=== PATIENT | male | born 1955 | race Caucasian/White ===

== ENCOUNTER → 2018-08-07 | Outpatient (CLI) | payer OTHER ==
[~2018-08-07] MED LIST: ASPIR 8181 MG PO; ATORVASTATIN CA40 MG PO; DICYCLOMINE HCL20 MG PO; EFFIENT10 MG PO; METOPROLOL TART25 MG PO; PROMETHAZINE HC25 M1 PO; SUCRALFATE1 GM PO; TRIAZOLAM0.25 MG PO; VSL#3 CAPSULE1 EACH PO; Z.0.CRESTOR40 MG PO; Z.0.ECOTRIN325 MG PO; Z.0.LOTREL 5-20 MG1 PO; Z.0.OMEPRAZOLE40 MG PO
--- NOTE | 2018-08-10 11:52 | Diagnostic Imaging Report ---
TECHNIQUE: Magnetic resonance imaging of the LEFT KNEE was performed WITHOUT injected contrast. HISTORY: Left knee pain COMPARISON: None available. FINDINGS: LIGAMENTS AND TENDONS: ACL: Intact PCL: Intact Collateral ligaments: Intact Iliotibial band: Unremarkable Popliteal tendon: Intact Extensor mechanism: Intact JOINT: Menisci: Medial: Probable prior partial meniscectomy Lateral: Intact Articular Cartilage: Medial Compartment: Focal full-thickness cartilage loss involving the weightbearing femoral condyle measuring approximately 5 by 1 cm with subchondral edema Lateral Compartment: No focal defect. Patellofemoral Compartment: No focal defect. Joint Fluid: Trace joint effusion. BONE: No focal or infiltrative bone marrow replacing abnormality. No acute fracture. SOFT TISSUES: Otherwise, unremarkable. IMPRESSION: Medial meniscus probable partial meniscectomy (rather than horizontal tear) to the body and posterior horn. Medial femoral condyle full-thickness cartilage defect with subchondral edema. Signed by: Dr. Miki Corley M.D. on 08/10/2018 11:48 AM
== END ==
LOC: MRI 08:10
PROVIDERS: ATTEND Specialist
DX: M23.92 Unspecified internal derangement of left knee (principal)

== ENCOUNTER 2018-10-23 14:00 | Outpatient (RCR) | payer OTHER ==
[2018-10-25] MEDS ORDERED: CLOPIDOGREL75 MG PO (15:27)
[2018-10-25] MEDS ORDERED: GABAPENTIN300 MG PO (15:27)
== END 2018-11-05 ==
LOC: PT 14:00
PROVIDERS: ATTEND Specialist
DX: S93.432D Sprain of tibiofibular ligament of left ankle, subsequent encounter (principal); M23.322 Other meniscus derangements, posterior horn of medial meniscus, left knee; M23.92 Unspecified internal derangement of left knee; M25.562 Pain in left knee; M25.572 Pain in left ankle and joints of left foot; M62.81 Muscle weakness (generalized)
CPT/HCPCS: 97139

== ENCOUNTER → 2018-10-26 | Day surgery (SDC) | payer OTHER ==
[~2018-10-26] MED LIST changes: +CLOPIDOGREL75 MG PO; +FENTANYL CITRATE/PF 100MCG/2 ML INJ ONE; +GABAPENTIN300 MG PO; +MIDAZOLAM HCL 2 MG/2 ML VIAL ONE; +PROPOFOL IV EMULSION 10 MG/ML 50 ML VIAL ONE
--- OUTSIDE RECORDS SUMMARY | 2018-10-26 10:57 | XMS REPORT | Summary of Care ---
Author Author [facility] Outpatient Imaging [facility] Outpatient Imaging [facility] Address Unknown Phone Unavailable Encounter HQ Terrance_steve(FIN) [id number] Date(s): 03/08/18 - 03/08/18 [facility] Outpatient Imaging [facility] [address] [facility], [address] [place] [address] [phone] Encounter Diagnosis Other forms of stomatitis (Final) - 03/14/18 Discharge Disposition: Home or Self Care Attending Physician: Sergo Harrison MD Referring Physician: Sergo Harrison MD Vital Signs No data available for this section Problem List Condition Effective Dates Status Health Status Informant Coronary artery Resolved disease(Confirmed) GERD Resolved (gastroesophageal reflux disease)(Confirmed) Heart Resolved attack(Confirmed) HTN Resolved (hypertension)(Confi rmed) Hyperlipidemia(Confi Resolved rmed) Allergies, Adverse Reactions, Alerts Substance Reaction Severity Status NKDA Active Medications No data available for this section Results No data available for this section Immunizations No data available for this section Procedures Procedure Date Related Diagnosis Body Site Status Stent placement1 Completed 1RCA x 2 Social History Social History Type Response Substance Abuse Use: None. Alcohol Never Smoking Status Never smoker; Exposure to Tobacco Smoke None; Cigarette Smoking Last 365 Days No; Reg Smoking Cessation Counseling No entered on: 01/29/16 Assessment and Plan No data available for this section
--- OUTSIDE RECORDS SUMMARY | 2018-10-26 10:57 | XMS REPORT | Summary of Care ---
Author Author [facility] Organization [facility] Address Unknown Phone Unavailable Encounter LUCA Longoria(KASH) [id number] Date(s): 04/30/15 - 05/01/15 [facility] [address] [place] [address]- Discharge Disposition: Home Attending Physician: Henrry Gutierrez MD Admitting Physician: Henrry Gutierrez MD Referring Physician: Henrry Gutierrez MD Vital Signs 1 2 3 Most recent to oldest [Reference Range]: 165.1 cm (04/30/15 10:31 AM) Height 1 2 3 Most recent to oldest [Reference Range]: 98.0 DegF (05/01/15 12:00 PM) 98 DegF (05/01/15 12:00 AM) 97.9 DegF (04/30/15 8:00 PM) Temperature Oral [96.4-99.1 DegF] 1 2 3 Most recent to oldest [Reference Range]: 138/70 mmHg (05/01/15 1:00 PM) 141/69 mmHg *HI* (05/01/15 12:00 PM) 148/70 mmHg *HI* (05/01/15 11:00 AM) Blood Pressure [90-140/60-90 mmHg] 1 2 3 Most recent to oldest [Reference Range]: 18 BRMIN (05/01/15 1:00 PM) 18 BRMIN (05/01/15 12:00 PM) 18 BRMIN (05/01/15 11:00 AM) Respiratory Rate [14-20 BRMIN] 1 2 3 Most recent to oldest [Reference Range]: 67.273 kg (04/30/15 10:31 AM) Weight 1 2 3 Most recent to oldest [Reference Range]: 24.68 m2 (04/30/15 10:31 AM) Body Mass Index Problem List Condition Effective Dates Status Health Status Informant Heart Resolved attack(Confirmed) HTN Resolved (hypertension)(Confi rmed) Allergies, Adverse Reactions, Alerts Substance Reaction Severity Status NKDA Active Medications acetaminophen-hydrocodone 325 mg-5 mg oral tablet 1 tab, Route: PO, Drug Form: TAB, Dosing Weight 67.273, kg, Q4H, PRN Pain Score 1-5, Start date: 04/30/15 13:11:00, Duration: 30 day, Stop date: 05/30/15 13:10: 00 Notes: (Same as: [place] 325/5) Do not exceed 4gm/day of acetaminophen. Start Date: 04/30/15 Stop Date: 05/01/15 Status: Discontinued acetaminophen-hydrocodone 325 mg-5 mg oral tablet 1 tab, Route: PO, Drug Form: TAB, Dosing Weight 67.273, kg, Q4H, PRN Pain Score 1-5, Start date: 04/30/15 16:12:00, Duration: 30 day, Stop date: 05/30/15 16:11: 00 Notes: (Same as: [place] 325/5) Do not exceed 4gm/day of acetaminophen. Start Date: 04/30/15 Stop Date: 05/01/15 Status: Discontinued aspirin 81 mg tablet, enteric coated 81 mg, 1 tab, Route: PO, Drug form: ECTAB, Daily, Dosing Weight 67.273, kg, Star t date: 04/30/15 17:01:00, Duration: 30 day, Stop date: 05/30/15 9:00:00 Notes: Do not crush or chew.(Same As: Ecotrin) Start Date: 04/30/15 Stop Date: 05/01/15 Status: Discontinued Aspirin Low Dose 81 mg oral tablet =1 tab, PO, Daily, # 100 tab, 3 Refill(s) Start Date: 04/30/15 Stop Date: 05/01/15 Status: Discontinued Aspirin Low Dose 81 mg oral tablet =1 tab, PO, Daily, # 30 tab, 5 Refill(s) Start Date: 05/01/15 Status: Ordered atorvastatin 20 mg, 2 tab, Route: PO, Drug form: TAB, Bedtime, Dosing Weight 67.273, kg, Star t date: 04/30/15 21:00:00, Duration: 30 day, Stop date: 05/29/15 21:00:00 Notes: (Same As: Lipitor) Start Date: 04/30/15 Stop Date: 05/01/15 Status: Discontinued atorvastatin 20 mg oral tablet 20 mg=1 tab, PO, QPM, # 30 tab, 5 Refill(s) Start Date: 05/01/15 Status: Ordered cloNIDine 0.1 mg oral tablet 0.1 mg, 1 tab, Route: PO, Drug form: TAB, Q6H, Dosing Weight 67.273, kg, PRN Josselin vated BP, Start date: 04/30/15 18:20:00, Duration: 30 day, Stop date: 05/30/15 1 8:19:00, SBP > 165 Notes: (Same As: Catapres) Start Date: 04/30/15 Stop Date: 05/01/15 Status: Discontinued dicyclomine 20 mg oral tablet 20 mg=1 tab, PO, TID, 0 Refill(s) Start Date: 04/30/15 Status: Ordered diphenhydrAMINE 25 mg, 1 tab, Route: PO, Drug form: TAB, Bedtime, Dosing Weight 67.273, kg, PRN Insomnia, Start date: 04/30/15 13:11:00, Duration: 30 day, Stop date: 05/30/15 1 3:10:00 Start Date: 04/30/15 Stop Date: 05/01/15 Status: Discontinued diphenhydrAMINE 25 mg, 1 tab, Route: PO, Drug form: TAB, Bedtime, Dosing Weight 67.273, kg, PRN Insomnia, Start date: 04/30/15 16:12:00, Duration: 30 day, Stop date: 05/30/15 1 6:11:00 Start Date: 04/30/15 Stop Date: 05/01/15 Status: Discontinued famotidine 20 mg, 1 tab, Route: PO, Drug form: TAB, Q12H, Dosing Weight 67.273, kg, Start d ate: 04/30/15 21:00:00, Duration: 30 day, Stop date: 05/30/15 9:00:00 Notes: (Same as: Pepcid) Start Date: 04/30/15 Stop Date: 05/01/15 Status: Discontinued metoprolol tartrate 25 mg, 1 tab, Route: PO, Drug form: TAB, Q12H, Dosing Weight 67.273, kg, Start d ate: 05/01/15 21:00:00, Duration: 30 day, Stop date: 05/31/15 9:00:00 Notes: (Same as: Lopressor) Start Date: 05/01/15 Stop Date: 05/01/15 Status: Canceled metoprolol tartrate 25 mg oral tablet 25 mg, PO, Q12H, # 60 tab, 5 Refill(s) Start Date: 05/01/15 Status: Ordered MiraLax 17 gm, 1 pkt, Route: PO, Drug form: PWDR, Daily, Dosing Weight 67.273, kg, PRN C onstipation, Start date: 04/30/15 18:20:00, Duration: 30 day, Stop date: 5 18:19:00 Notes: Dissolve in 8 oz of water or juice.(Same as: Miralax) Start Date: 04/30/15 Stop Date: 05/01/15 Status: Discontinued nitroglycerin SL Tab 0.4 mg, 1 tab, Route: SL, Drug form: TAB, Q5Min, Dosing Weight 67.273, kg, PRN C hest Pain, Start date: 04/30/15 13:11:00, Duration: 3 doses or times, Stop date: Limited # of times Notes: (Same as:Nitroquick, Nitrostat)"Do Not Crush" Sublingual tablet Start Date: 04/30/15 Stop Date: 04/30/15 Status: Discontinued nitroglycerin SL Tab 0.4 mg, 1 tab, Route: SL, Drug form: TAB, Q5Min, Dosing Weight 67.273, kg, PRN C hest Pain, Start date: 04/30/15 16:12:00, Duration: 3 doses or times, Stop date: Limited # of times Notes: (Same as:Nitroquick, Nitrostat)"Do Not Crush" Sublingual tablet Start Date: 04/30/15 Stop Date: 05/01/15 Status: Discontinued normal saline 0.9% IV 1,000 mL 1,000 mL, Rate: 100 ml/hr, Infuse over: 10 hr, Route: IV, Dosing Weight 67.273 k g, Total Volume: 1,000, Start date: 04/30/15 11:08:00, Duration: 30 day, Stop da te: 05/30/15 11:07:00 Start Date: 04/30/15 Stop Date: 05/01/15 Status: Discontinued omeprazole 40 mg oral delayed release capsule 40 mg=1 cap, PO, BID, 0 Refill(s) Start Date: 04/30/15 Stop Date: 05/01/15 Status: Discontinued ondansetron 4 mg, 1 tab, Route: PO, Drug form: TAB, Q8H, Dosing Weight 67.273, kg, PRN Nause a & Vomiting, Start date: 04/30/15 13:11:00, Duration: 30 day, Stop date: 05/30/15 13:10:00 Notes: (Same as: Zofran) Start Date: 04/30/15 Stop Date: 04/30/15 Status: Discontinued ondansetron 4 mg, 1 tab, Route: PO, Drug form: TAB, Q8H, Dosing Weight 67.273, kg, PRN Nause a & Vomiting, Start date: 04/30/15 16:12:00, Duration: 30 day, Stop date: 05/30/15 16:11:00 Notes: (Same as: Zofran) Start Date: 04/30/15 Stop Date: 04/30/15 Status: Discontinued Restoril 15 mg, 1 cap, Route: PO, Drug form: CAP, Bedtime, Dosing Weight 67.273, kg, PRN Sleep, Start date: 04/30/15 18:20:00, Duration: 30 day, Stop date: 05/30/15 18:1 9:00 Notes: (Same As: Restoril) Start Date: 04/30/15 Stop Date: 05/01/15 Status: Discontinued Sodium Chloride 0.9% IV 1,200 mL 1,200 mL, Rate: 100 ml/hr, Infuse over: 12 hr, Route: IV, Dosing Weight 67.273 k g, Total Volume: 1,200, Start date: 04/30/15 16:12:00, Duration: 12 hr, Stop tess e: 05/01/15 4:11:00 Start Date: 04/30/15 Stop Date: 05/01/15 Status: Completed ticagrelor 90 mg, 1 tab, Route: PO, Drug form: TAB, Q12H, Dosing Weight 67.273, kg, Start d ate: 04/30/15 21:00:00, Duration: 30 day, Stop date: 05/30/15 9:00:00 Notes: (Same as: Brilinta) Start Date: 04/30/15 Stop Date: 05/01/15 Status: Discontinued ticagrelor 90 mg oral tablet 90 mg=1 tab, PO, Q12H, # 60 tab, 5 Refill(s) Start Date: 05/01/15 Status: Ordered Tylenol 650 mg, 20.3 mL, Route: PO, Drug form: LIQ, Q6H, Dosing Weight 67.273, kg, PRN O ther -See Comment, Start date: 04/30/15 18:20:00, Duration: 30 day, Stop date: 1 18:19:00, fever, pain, headache Notes: Max jcpujaimoojor=2107be/day (4 gm/day). (Same as: Tylenol) Start Date: 04/30/15 Stop Date: 05/01/15 Status: Discontinued Zofran 4 mg, 2 mL, Route: IVP, Drug form: INJ, Q4H, Dosing Weight 67.273, kg, PRN Nause a, Start date: 04/30/15 18:20:00, Duration: 30 day, Stop date: 05/30/15 18:19:00 Notes: (Same as: Zofran) MEDICATION WASTE Product Size: 4 mgProduct Was tiara: ___ mg Start Date: 04/30/15 Stop Date: 05/01/15 Status: Discontinued Results ELECTROLYTES 1 2 3 Most recent to oldest [Reference Range]: 140 mEq/L (05/01/15 5:21 AM) 139 mEq/L (04/30/15 10:34 AM) Sodium Lvl [135-145 mEq/L] 3.7 mEq/L (05/01/15 5:21 AM) 4.3 mEq/L (04/30/15 10:34 AM) Potassium Lvl [3.5-5.1 mEq/L] 108 mEq/L (05/01/15 5:21 AM) 104 mEq/L (04/30/15 10:34 AM) Chloride Lvl [95-109 mEq/L] 25 mEq/L (05/01/15 5:21 AM) 31 mEq/L (04/30/15 10:34 AM) CO2 [24-32 mEq/L] 10.7 mEq/L (05/01/15 5:21 AM) 8.3 mEq/L *LOW* (04/30/15 10:34 AM) AGAP [10.0-20.0 mEq/L] CHEM PANEL 1 2 3 Most recent to oldest [Reference Range]: 0.9 mg/dL (05/01/15 5:21 AM) 1.3 mg/dL (04/30/15 10:34 AM) Creatinine Lvl [0.5-1.4 mg/dL] 94 mL/min/1.73m2 1 *NA* (05/01/15 5:21 AM) 60 mL/min/1.73m2 2 *NA* (04/30/15 10:34 AM) eGFR 12 mg/dL (05/01/15:21 AM) 15 mg/dL (04/30/15 10:34 AM) BUN [7-22 mg/dL] 86 mg/dL (05/01/15 5:21 AM) 95 mg/dL (04/30/15 10:34 AM) Glucose Lvl [70-99 mg/dL] 7.8 mg/dL *LOW* (05/01/15 5:21 AM) 9.1 mg/dL (04/30/15 10:34 AM) Calcium Lvl [8.5-10.5 mg/dL] 1.9 mg/dL (04/30/15 4:41 PM) Magnesium Lvl [1.8-2.4 mg/dL] 1Result Comment: The eGFR is calculated using the CKD-EPI formula. In most young, healthy individuals the eGFR will be >90 mL/min/1.73m2. The eGFR declines with age. An eGFR of 60-89 may be normal in some populations, particularly the elderly, for whom the CKD-EPI formula has not been extensively validated. Use of the eGFR is not recommended in the following populations: Individuals with unstable creatinine concentrations, including patients and those with serious co-morbid conditions. Patients with extremes in muscle mass or diet. The data above are obtained from the National Kidney Disease Education Program ( NKDEP) which additionally recommends that when the eGFR is used in patients with extremes of body mass index for purposes of drug dosing, the eGFR should be mul tiplied by the estimated BMI. 2Result Comment: The eGFR is calculated using the CKD-EPI formula. In most young, healthy individuals the eGFR will be >90 mL/min/1.73m2. The eGFR declines with age. An eGFR of 60-89 may be normal in some populations, particularly the elderly, for whom the CKD-EPI formula has not been extensively validated. Use of the eGFR is not recommended in the following populations: Individuals with unstable creatinine concentrations, including patients and those with serious co-morbid conditions. Patients with extremes in muscle mass or diet. The data above are obtained from the National Kidney Disease Education Program ( NKDEP) which additionally recommends that when the eGFR is used in patients with extremes of body mass index for purposes of drug dosing, the eGFR should be mul tiplied by the estimated BMI. CARDIAC ENZYMES 1 2 3 Most recent to oldest [Reference Range]: 38 unit/L (04/30/15 4:41 PM) Total CK [12-191 unit/L] <0.5 ng/mL (04/30/15 4:41 PM) CK MB [0.5-3.6 ng/mL] 0.35 ng/mL (05/01/15 5:21 AM) 0.29 ng/mL (04/30/15 11:15 PM) 0.05 ng/mL (04/30/15 4:41 PM) Troponin-I [0.00-0.40 ng/mL] LIPIDS 1 2 3 Most recent to oldest [Reference Range]: 6.32 (05/01/15 5:21 AM) CHD Risk [4.00-7.30] 177 mg/dL (05/01/15 5:21 AM) Chol [<=199 mg/dL] 310 mg/dL *HI* (05/01/15 5:21 AM) Trig [<=149 mg/dL] 28 mg/dL *LOW* (05/01/15 5:21 AM) HDL [>=61 mg/dL] 87 mg/dL (05/01/15 5:21 AM) LDL (Calculated) [<=99 mg/dL] 62 *NA* (05/01/15 5:21 AM) VLDL SPECIAL CHEMISTRY 1 2 3 Most recent to oldest [Reference Range]: 5.5 % (05/01/15 5:21 AM) Hgb A1C [<=5.6 %] HEMATOLOGY 1 2 3 Most recent to oldest [Reference Range]: 8.3 K/CMM (05/01/15 5:21 AM) 5.8 K/CMM (04/30/15 10:34 AM) WBC [3.7-10.4 K/CMM] 4.33 M/CMM *LOW* (05/01/15 5:21 AM) 4.79 M/CMM (04/30/15 10:34 AM) RBC [4.70-6.10 M/CMM] 12.8 g/dL *LOW* (05/01/15 5:21 AM) 14.2 g/dL (04/30/15 10:34 AM) Hgb [14.0-18.0 g/dL] 37.7 % *LOW* (05/01/15 5:21 AM) 42.1 % (04/30/15 10:34 AM) Hct [42.0-54.0 %] 86.9 fL (05/01/15 5:21 AM) 88.0 fL (04/30/15 10:34 AM) MCV [80.0-94.0 fL] 29.6 pg (05/01/15 5:21 AM) 29.6 pg (04/30/15 10:34 AM) MCH [27.0-31.0 pg] 34.1 g/dL (05/01/15 5:21 AM) 33.7 g/dL (04/30/15 10:34 AM) MCHC [32.0-36.0 g/dL] 13.1 % (05/01/15 5:21 AM) 13.1 % (04/30/15 10:34 AM) RDW [11.5-14.5 %] 201 K/CMM (05/01/15 5:21 AM) 239 K/CMM (04/30/15 10:34 AM) Platelet [133-450 K/CMM] 8.8 fL (05/01/15 5:21 AM) 8.7 fL (04/30/15 10:34 AM) MPV [7.4-10.4 fL] 74.0 % (05/01/15 5:21 AM) 59.6 % (04/30/15 10:34 AM) Segs [45.0-75.0 %] 15.6 % *LOW* (05/01/15 5:21 AM) 27.1 % (04/30/15 10:34 AM) Lymphocytes [20.0-40.0 %] 8.9 % (05/01/15 5:21 AM) 9.8 % (04/30/15 10:34 AM) Monocytes [2.0-12.0 %] 1.0 % (05/01/15 5:21 AM) 2.4 % (04/30/15 10:34 AM) Eosinophils [0.0-4.0 %] 0.5 % (05/01/15 5:21 AM) 1.1 % *HI* (04/30/15 10:34 AM) Basophils [0.0-1.0 %] 6.2 K/CMM (05/01/15 5:21 AM) 3.5 K/CMM (04/30/15 10:34 AM) Segs-Bands # [1.5-8.1 K/CMM] 1.3 K/CMM (05/01/15 5:21 AM) 1.6 K/CMM (04/30/15 10:34 AM) Lymphocytes # [1.0-5.5 K/CMM] 0.7 K/CMM (05/01/15 5:21 AM) 0.6 K/CMM (04/30/15 10:34 AM) Monocytes # [0.0-0.8 K/CMM] 0.1 K/CMM (05/01/15 5:21 AM) 0.1 K/CMM (04/30/15 10:34 AM) Eosinophils # [0.0-0.5 K/CMM] 0.1 K/CMM (04/30/15 10:34 AM) Basophils # [0.0-0.2 K/CMM] 13.0 seconds (04/30/15 10:34 AM) PT [12.0-14.7 seconds] 0.95 (04/30/15 10:34 AM) INR [0.85-1.17] 30.0 seconds (04/30/15 10:34 AM) PTT [22.9-35.8 seconds] BACTERIAL - SEROLOGY 1 2 3 Most recent to oldest [Reference Range]: Negative (05/01/15 12:07 AM) MRSA by PCR Immunizations No data available for this section Procedures Procedure Date Related Diagnosis Body Site Stent placement1 1RCA x 2 Social History Social History Type Response Smoking Status Exposure to Tobacco Smoke None; Cigarette Smoking Last 365 Days No; Reg Smoking Cessation Counseling No; Never smoker Assessment and Plan Extracted from: Title: Clinical Document Author: Yevgeniy Frankel MD Date: 05/01/15 [facility] Daily Progress Note [facility] Yevgeniy Frankel MD SUBJECTIVE: Pt seen and exam'd. Events noted. Following up CAD. No more chest pain, no SOB. Feels well, asking to go home. OBJECTIVE: Vitals and Temp: VitalsTmp(F)[id number] 05/01 11:00----[id number]--- 05/01 10:00----[id number]--- 05/01 09:00----[id number]--- 05/01 08:31----67-----14------ 05/01 08:[id number]--- 24 Hr Tmax: 98.2F (36.78c) at 05/01 08:00Vital Signs are the last 5 in the past 48 hours. Input/Output RecordInOutBal 04/2424hr Tot 0 0 0 04/2324hr Tot 2881 1310 1571 Labs (Last four charted values) WBC 8.3(MAY 01)5.8(APR 30) Hgb L 12.8(MAY 01)14.2(APR 30) Hct L 37.7(MAY 01)42.1(APR 30) Plt 201(MAY 01)239(APR 30) Na 140(MAY 01)139(APR 30) K 3.7(MAY 01)4.3(APR 30) CO2 25(MAY 01)31(APR 30) Cl 108(MAY 01)104(APR 30) Cr 0.9(MAY 01)1.3(APR 30) BUN 12(MAY 01)15(APR 30) Glucose Random 86(MAY 01)95(APR 30) Mg 1.9(APR 30) Ca L 7.8(MAY 01)9.1(APR 30) PT 13.0(APR 30) INR 0.95(APR 30) PTT 30.0(APR 30) Troponin 0.35(MAY 01)0.29(APR 30)0.05(APR 30) CK MB <0.5(APR 30) Total CK 38(APR 30) Medications Scheduled Meds (5):aspirin (aspirin 81 mg tablet, enteric coated), atorvastatin, famotidine, metoprolol (metoprolol tartrate), ticagrelor Unscheduled Meds: None PRN Meds (10):acetaminophen-hydrocodone (acetaminophen-hydrocodone 325 mg-5 mg oral tablet), acetaminophen-hydrocodone (acetaminophen-hydrocodone 325 mg-5 mg oral tablet), acetaminophen (Tylenol), cloNIDine (cloNIDine 0.1 mg oral tablet), diphenhydrAMINE, diphenhydrAMINE, nitroglycerin (nitroglycerin SL Tab), ondansetron (Zofran), polyethylene glycol 3350 (MiraLax), temazepam (Restoril) One Time Meds: None Continuous Infusions (1):Sodium Chloride 0.9% IV 1,000 mL (normal saline 0.9% IV 1,000 mL) EXAM: Gen: Awake, alert, oriented X3, in NAD HEENT: PERRL, EOMI, NC/AT, MMM Neck: Supple without bruit or jvd. HECTOR Lungs: CTAB Heart: S1/S2, RRR Abd: Positive bowel sounds, nt/nd Ext: No CCE Skin: warm/ dry/ intact Neuropsych: mentation appropriate. ASSESSMENT & PLAN: 1. ST elevation myocardial infarction. 2. Coronary artery disease. 3. Hypertension. 4. Gastroesophageal reflux disease. Pt s/p LHC with intervention, doing well afterwards. Start metoprolol Continue medical treatment including asa/brilinta, lipitor, metoprolol. Plan dc home today
--- OUTSIDE RECORDS SUMMARY | 2018-10-26 10:57 | XMS REPORT | Summary of Care ---
Author Author [facility] Outpatient Imaging [facility] Outpatient Imaging [facility] Address Unknown Phone Unavailable Encounter HQ Gerardor_steve(FIN) [id number] Date(s): 10/16/15 - 10/16/15 [facility] Outpatient Imaging [facility] [address] [address] [facility], [address] [place], [place] [id number] [place] [address] [phone] Discharge Disposition: Home Attending Physician: Nani Piper MD Vital Signs No data available for [...] History Social History Type Response Smoking Status Never smoker; Exposure to Tobacco Smoke None; Cigarette Smoking Last 365 Days No; Reg Smoking Cessation Counseling No Assessment and Plan No data available for this section
--- OUTSIDE RECORDS SUMMARY | 2018-10-26 10:57 | XMS REPORT | Summary of Care ---
Author Author [facility] Organization [facility] Address Unknown Phone Unavailable Encounter LUCA Longoria(KASH) [id number] Date(s): 01/29/16 - 01/31/16 [facility] [address] [facility] provided by [facility] [place] [address]- Discharge Disposition: Home Attending Physician: Jose Vargas MD Admitting Physician: Jose Vargas MD Vital Signs 1 2 3 Most recent to oldest [Reference Range]: 165.1 cm (01/29/16 10:30 PM) Height 98 DegF (01/31/16 12:56 PM) 97.8 DegF (01/31/16 8:33 AM) 98.4 DegF (01/31/16 4:17 AM) Temperature Oral [96.4-99.1 DegF] 156/81 mmHg *HI* (01/31/16 12:56 PM) 153/80 mmHg *HI* (01/31/16 8:33 AM) 118/61 mmHg (01/31/16 4:17 AM) Blood Pressure [90-140/60-90 mmHg] 20 BRMIN (01/31/16 12:56 PM) 20 BRMIN (01/31/16 8:33 AM) 20 BRMIN (01/31/16 4:17 AM) Respiratory Rate [14-20 BRMIN] 51 bpm *LOW* (01/31/16 12:56 PM) 57 bpm *LOW* (01/31/16 8:33 AM) 55 bpm *LOW* (01/31/16 4:17 AM) Peripheral Pulse Rate [60-100 bpm] 61.001 kg (01/29/16 10:30 PM) Weight 22.38 m2 (01/29/16 10:30 PM) Body Mass Index Problem List Condition Effective Dates Status Health Status Informant Coronary artery Resolved disease(Confirmed) GERD Resolved (gastroesophageal reflux disease)(Confirmed) Heart Resolved attack(Confirmed) HTN Resolved (hypertension)(Confi rmed) Hyperlipidemia(Confi Resolved rmed) Allergies, Adverse Reactions, Alerts Substance Reaction Severity Status NKDA Active Medications Ambien 5 mg, 1 tab, Route: PO, Drug form: TAB, ONCE, Dosing Weight 61.001, kg, Priority : NOW, Start date: 01/30/16 22:17:00 CDT, Stop date: 01/30/16 22:17:00 CDT Notes: (Same As: Ambien) Start Date: 01/30/16 Stop Date: 01/30/16 Status: Completed aspirin 81 mg, 1 tab, Route: PO, Drug form: ECTAB, Daily, Dosing Weight 61.001, kg, Star t date: 01/30/16 9:00:00 CDT, Duration: 30 day, Stop date: 02/28/16 9:00:00 CDT Notes: Do not crush or chew.(Same As: Ecotrin) Start Date: 01/30/16 Stop Date: 01/31/16 Status: Discontinued atorvastatin 20 mg, 1 tab, Route: PO, Drug form: TAB, Bedtime, Dosing Weight 65.909, kg, Star t date: 01/30/16 21:00:00 CDT, Duration: 30 day, Stop date: 02/28/16 21:00:00 CD T Notes: (Same As: Lipitor) Start Date: 01/30/16 Stop Date: 01/31/16 Status: Discontinued atorvastatin 80 mg, 1 tab, Route: PO, Drug form: TAB, ONCE, Dosing Weight 65.909, kg, Start d ate: 01/29/16 19:15:00 CDT, Stop date: 01/29/16 19:15:00 CDT Notes: Same as Lipitor Start Date: 01/29/16 Stop Date: 01/29/16 Status: Completed bisacodyl 5 mg oral enteric coated tablet 5 mg=1 tab, PO, ONCE, PRN Constipation, # 12 tab, 0 Refill(s) Start Date: 01/31/16 Status: Ordered dicyclomine 20 mg, 1 tab, Route: PO, Drug form: TAB, QID, Dosing Weight 61.001, kg, Start da te: 01/31/16 13:00:00 CDT, Duration: 30 day, Stop date: 03/01/16 9:00:00 CDT Notes: (Same as: Bentyl) Start Date: 01/31/16 Stop Date: 01/31/16 Status: Discontinued Dilaudid 1 mg, Route: IVP, ONCE, Dosing Weight 65.909, kg, Start date: 01/29/16 18:01:00 CDT, Stop date: 01/29/16 18:01:00 CDT Start Date: 01/29/16 Stop Date: 01/29/16 Status: Completed docusate-senna 50 mg-8.6 mg oral tablet 1 tab, Route: PO, Drug Form: TAB, Dosing Weight 61.001, kg, BID, Start date: 10:18:00 CDT, Duration: 30 day, Stop date: 02/29/16 9:00:00 CDT Notes: (Same as Mandi-S) Equiv. to Sahara-Colace. Start Date: 01/30/16 Stop Date: 01/31/16 Status: Discontinued Dulcolax Laxative 5 mg, 1 tab, Route: PO, Drug form: ECTAB, ONCE, Dosing Weight 65.909, kg, PRN Co nstipation, Start date: 01/29/16 18:03:00 CDT Notes: (Same As: Dulcolax, Correctol) (Do Not Crush) "Do Not Crush" Start Date: 01/29/16 Stop Date: 01/31/16 Status: Discontinued Dulcolax Laxative =1 supp, IL, Daily, PRN constipation, # 5 supp, 0 Refill(s) Start Date: 01/31/16 Stop Date: 01/31/16 Status: Discontinued Effient 10 mg, 1 tab, Route: PO, Drug form: TAB, Daily, Dosing Weight 61.001, kg, Start date: 01/30/16 8:34:00 CDT, Duration: 30 day, Stop date: 02/28/16 9:00:00 CDT Notes: Same as Effient For patients < 75 years old, > 60kg, without history of TIA/Ischemic stroke and without likely bypass surgery Start Date: 01/30/16 Stop Date: 01/31/16 Status: Discontinued Effient 10 mg oral tablet 10 mg=1 tab, PO, Daily, 0 Refill(s) Start Date: 01/29/16 Status: Ordered Heparin - one time bolus for DVT/PE 4,900 unit, 4.9 mL, Route: IV, Drug form: INJ, ONCE, Dosing Weight 61.001, kg, P riority: STAT, Start date: 01/30/16 10:29:00 CDT, Stop date: 01/30/16 10:29:00 C DT Start Date: 01/30/16 Stop Date: 01/30/16 Status: Completed Heparin - one time bolus for DVT/PE 4,900 unit, Route: IV, Drug form: INJ, ONCE, Dosing Weight 61.001, kg, Priority: STAT, Start date: 01/30/16 10:19:00 CDT, Stop date: 01/30/16 10:19:00 CDT, Init ial Bolus Start Date: 01/30/16 Stop Date: 01/30/16 Status: Discontinued Heparin 40 unit/kg Bolus (Heparin Dosing Weight) Route: IVP, PRN, 2,400 unit, 2.4 mL, Drug form: INJ, PRN, Heparin Protocol, Star t date: 01/30/16 10:29:00 CDT Stop date: 02/29/16 10:28:00 CDT, 30 day Start Date: 01/30/16 Stop Date: 01/31/16 Status: Discontinued Heparin 40 unit/kg Bolus (Heparin Dosing Weight) Pharmacy To Manage, Route: IVP, PRN, Drug form: INJ, PRN, Heparin Protocol, Star t date: 01/30/16 10:19:00 CDT Stop date: 02/29/16 10:18:00 CDT, 30 day Start Date: 01/30/16 Stop Date: 01/30/16 Status: Discontinued Heparin 80 unit/kg Bolus (Heparin Dosing Weight) Route: IVP, PRN, 4,900 unit, 4.9 mL, Drug form: INJ, PRN, Heparin Protocol, Star t date: 01/30/16 10:29:00 CDT Stop date: 02/29/16 10:28:00 CDT, 30 day Start Date: 01/30/16 Stop Date: 01/31/16 Status: Discontinued Heparin 80 unit/kg Bolus (Heparin Dosing Weight) Pharmacy To Manage, Route: IVP, PRN, Drug form: INJ, PRN, Heparin Protocol, Star t date: 01/30/16 10:19:00 CDT Stop date: 02/29/16 10:18:00 CDT, 30 day Start Date: 01/30/16 Stop Date: 01/30/16 Status: Discontinued heparin additive 25,000 unit [18 unit/kg/hr] + Premix Diluent Dextrose 5% 500 mL 500 mL, Rate: 21.96 ml/hr, Infuse over: 22.8 hr, Route: IV, Dosing Weight 61 kg, Total Volume: 500 mL, Start date: 01/30/16 10:29:00 CDT, Duration: 30 day, Stop date: 02/29/16 10:28:00 CDT Start Date: 01/30/16 Stop Date: 01/31/16 Status: Discontinued heparin additive 25,000 unit [18 unit/kg/hr] + Premix Diluent Dextrose 5% 500 mL 500 mL, Rate: 21.96 ml/hr, Infuse over: 22.8 hr, Route: IV, Dosing Weight 61.001 kg, Total Volume: 500 mL, Start date: 01/30/16 10:19:00 CDT, Duration: 30 day, Stop date: 02/29/16 10:18:00 CDT Start Date: 01/30/16 Stop Date: 01/30/16 Status: Discontinued ibuprofen 400 mg, Route: PO, Drug form: TAB, Q4H, Dosing Weight 61.001, kg, PRN Pain Score 1-3, Start date: 01/30/16 11:26:00 CDT, Duration: 30 day, Stop date: 02/29/16 1 1:25:00 CDT Start Date: 01/30/16 Stop Date: 01/30/16 Status: Discontinued lisinopril 2.5 mg, 1 tab, Route: PO, Drug form: TAB, Daily, Dosing Weight 65.909, kg, Start date: 01/30/16 21:37:00 CDT, Duration: 30 day, Stop date: 02/29/16 9:00:00 CDT Notes: (Same as: Prinivil) Start Date: 01/30/16 Stop Date: 01/31/16 Status: Discontinued lisinopril 2.5 mg oral tablet 2.5 mg=1 tab, PO, Daily, # 30 tab, 3 Refill(s) Start Date: 01/30/16 Stop Date: 01/31/16 Status: Discontinued metoprolol tartrate 25 mg, 1 tab, Route: PO, Drug form: TAB, BID, Dosing Weight 65.909, kg, Start da te: 01/29/16 19:15:00 CDT, Duration: 30 day, Stop date: 02/28/16 17:00:00 CDT Notes: (Same as: Lopressor) Start Date: 01/29/16 Stop Date: 01/31/16 Status: Discontinued morphine Sulfate 4 mg, 1 mL, Route: IVP, Drug form: INJ, ONCE, Dosing Weight 65.909, kg, Priority : STAT, Start date: 01/29/16 16:59:00 CDT, Stop date: 01/29/16 16:59:00 CDT Notes: (Same as:MORPhine Sulfate) Start Date: 01/29/16 Stop Date: 01/29/16 Status: Completed morphine Sulfate 4 mg, 1 mL, Route: IVP, Drug form: INJ, ONCE, Dosing Weight 65.909, kg, Priority : STAT, Start date: 01/29/16 12:42:00 CDT, Stop date: 01/29/16 12:42:00 CDT Notes: (Same as:MORPhine Sulfate) Start Date: 01/29/16 Stop Date: 01/29/16 Status: Completed Neutra-Phos 1 pkt, Route: PO, Drug Form: PDR/REC, Dosing Weight 65.909, kg, ONCE, Start date : 01/29/16 19:25:00 CDT, Stop date: 01/29/16 19:25:00 CDT Notes: (Same as: Neutra-Phos) Each 1.25 gm pkt has 250mg phosphorous. Mix w/2.5 oz water and stir. Start Date: 01/29/16 Stop Date: 01/29/16 Status: Completed nitroglycerin SL Tab 0.4 mg, 1 tab, Route: SL, Drug form: TAB, Q5Min, Dosing Weight 65.909, kg, PRN C hest Pain, Start date: 01/29/16 19:09:00 CDT, Duration: 3 doses or times, Stop d ate: 01/31/16 0:00:00 CDT Notes: (Same as:Nitroquick, Nitrostat)"Do Not Crush" Sublingual tablet Start Date: 01/29/16 Stop Date: 01/31/16 Status: Completed nitroglycerin SL Tab 0.4 mg, 1 tab, Route: SL, Drug form: TAB, Q5Min, Dosing Weight 61.001, kg, PRN C hest Pain, Start date: 01/30/16 13:55:00 CDT, Duration: 3 doses or times, Stop d ate: Limited # of times Notes: (Same as:Nitroquick, Nitrostat) Start Date: 01/30/16 Stop Date: 01/31/16 Status: Discontinued nitroglycerin SL Tab 0.4 mg, 1 tab, Route: SL, Drug form: TAB, Q5Min, Dosing Weight 65.909, kg, Start date: 01/29/16 12:50:00 CDT, Duration: 3 doses or times, Stop date: 01/29/16 13 :00:00 CDT Notes: (Same as:Nitroquick, Nitrostat)"Do Not Crush" Sublingual tablet Start Date: 01/29/16 Stop Date: 01/29/16 Status: Completed nitroglycerin SL Tab 0.4 mg, Route: SL, Q5Min, Dosing Weight 65.909, kg, Start date: 01/29/16 12:45:0 0 CDT, Duration: 30 day, Stop date: 02/28/16 12:40:00 CDT Start Date: 01/29/16 Stop Date: 01/29/16 Status: Discontinued omeprazole 40 mg, PO, BID, 0 Refill(s) Start Date: 01/29/16 Status: Ordered omeprazole 20 mg, Route: PO, Drug form: ECCAP, BID-Before Meals, Dosing Weight 61.001, kg, Start date: 01/31/16 10:59:00 CDT, Duration: 30 day, Stop date: 03/01/16 7:30:00 CDT Start Date: 01/31/16 Stop Date: 01/31/16 Status: Deleted omeprazole 40 mg, Route: PO, Drug form: ECCAP, ONCE, Dosing Weight 61.001, kg, Priority: NO W, Start date: 01/30/16 22:17:00 CDT, Stop date: 01/30/16 22:17:00 CDT Start Date: 01/30/16 Stop Date: 01/30/16 Status: Deleted Omnipaque 350mg/ml 100 mL, Route: IVP, Drug Form: SOLN, Dosing Weight 61.001, kg, ONCALL, STAT, Sta rt date: 01/30/16 11:08:00 CDT, Duration: 1 doses or times, Dose=2.2ml/kg, Max [id number] -- "To be infused by Radiology Staff ONLY" Start Date: 01/30/16 Stop Date: 01/30/16 Status: Deleted Omnipaque 350mg/ml 100 mL, Route: IVP, Drug Form: SOLN, Dosing Weight 65.909, kg, ONCALL, STAT, Sta rt date: 01/29/16 14:17:00 CDT, Duration: 1 doses or times, Stop date: 01/29/16 21:00:00 CDT, Dose=2.2ml/kg, Max [id number] -- "To be infused by Radiology Staf f ONLY" Notes: (same as:Omnipaque 350).WASTE: F/P - Black; E - Municipal Trash Bin Start Date: 01/29/16 Stop Date: 01/31/16 Status: Completed ondansetron 4 mg, 2 mL, Route: IVP, Drug form: INJ, ONCE, Dosing Weight 65.909, kg, Priority : STAT, Start date: 01/29/16 12:42:00 CDT, Stop date: 01/29/16 12:42:00 CDT Notes: (Same as: Elvis) MEDICATION WASTE Product Size: 4 mgProduct Was tiara: _0__ mg Start Date: 01/29/16 Stop Date: 01/29/16 Status: Completed Protonix 40 mg, 1 tab, Route: PO, Drug form: ECTAB, ONCE, Start date: 01/30/16 22:23:00 C DT, Stop date: 01/30/16 22:23:00 CDT Notes: Tablet should not be chewed or crushed.(Same as: Protonix) Start Date: 01/30/16 Stop Date: 01/30/16 Status: Completed Protonix 40 mg, 1 tab, Route: PO, Drug form: ECTAB, Daily, Start date: 01/31/16 12:30:00 CDT, Duration: 30 day, Stop date: 03/01/16 9:00:00 CDT Notes: Tablet should not be chewed or crushed.(Same as: Protonix) Start Date: 01/31/16 Stop Date: 01/31/16 Status: Discontinued sodium chloride 0.9% 1000 ml INJ 750 mL 750 mL, Rate: 187.5 ml/hr, Infuse over: 4 hr, Route: IV, Dosing Weight 61.001 kg , Total Volume: 750, Start date: 01/30/16 13:55:00 CDT, Duration: 10 hr, Stop da te: 01/30/16 23:54:00 CDT Start Date: 01/30/16 Stop Date: 01/30/16 Status: Completed sodium phosphate + sodium chloride 0.9% INJ 250 mL 30 mmol, 10 mL, Route: IVPB, ONCE, Dosing Weight 65.909, kg, PRN Abnormal Lab Re sult, For NON-ICU Patients Only., Start date: 01/29/16 15:01:00 CDT Start Date: 01/29/16 Stop Date: 01/29/16 Status: Completed triazolam 0.25 mg oral tablet 0.5 mg=2 tab, PO, Bedtime, PRN Sleep, 0 Refill(s) Start Date: 01/29/16 Stop Date: 02/12/16 Status: Ordered Tylenol 325 mg, 1 tab, Route: PO, Drug form: TAB, Q6H, Dosing Weight 61.001, kg, PRN Yanira n Score 1-3, Start date: 01/30/16 11:45:00 CDT, Duration: 30 day, Stop date: 11:44:00 CDT Notes: Do not exceed 4 gm/day. (Same as: Tylenol) Start Date: 01/30/16 Stop Date: 01/31/16 Status: Discontinued Zofran 4 mg, 2 mL, Route: IVP, Drug form: INJ, ONCE, Dosing Weight 61.001, kg, Priority : NOW, Start date: 01/30/16 12:51:00 CDT, Stop date: 01/30/16 12:51:00 CDT Notes: (Same as: Zofran) MEDICATION WASTE Product Size: 4 mgProduct Was tiara: ___ mg Start Date: 01/30/16 Stop Date: 01/30/16 Status: Completed Zofran 4 mg, 2 mL, Route: IVP, Drug form: INJ, ONCE, Dosing Weight 61.001, kg, Start da te: 01/31/16 7:44:00 CDT, Stop date: 01/31/16 7:44:00 CDT Notes: (Same as: Zofran) MEDICATION WASTE Product Size: 4 mgProduct Was tiara: ___ mg Start Date: 01/31/16 Stop Date: 01/31/16 Status: Completed Zofran 4 mg oral tablet 4 mg=1 tab, PO, Q8H, PRN Nausea/vomiting, # 30 tab, 0 Refill(s) Start Date: 01/31/16 Stop Date: 01/31/16 Status: Discontinued Zofran 4 mg oral tablet 4 mg=1 tab, PO, Q8H, PRN Nausea/vomiting, # 30 tab, 0 Refill(s) Start Date: 01/31/16 Stop Date: 03/02/16 Status: Ordered Zofran 4 mg oral tablet 4 mg=1 tab, PO, Q8H, PRN Nausea/vomiting, # 30 tab, 0 Refill(s) Start Date: 01/31/16 Stop Date: 01/31/16 Status: Discontinued Results ELECTROLYTES 1 2 3 Most recent to oldest [Reference Range]: 144 mEq/L (01/31/16 5:55 AM) 146 mEq/L *HI* (01/30/16 4:13 AM) 141 mEq/L (01/29/16 1:16 PM) Sodium Lvl [135-145 mEq/L] 4.0 mEq/L (01/31/16 5:55 AM) 4.3 mEq/L (01/30/16 4:13 AM) 3.6 mEq/L (01/29/16 1:16 PM) Potassium Lvl [3.5-5.1 mEq/L] 110 mEq/L *HI* (01/31/16 5:55 AM) 111 mEq/L *HI* (01/30/16 4:13 AM) 105 mEq/L (01/29/16 1:16 PM) Chloride Lvl [95-109 mEq/L] 27 mEq/L (01/31/16 5:55 AM) 27 mEq/L (01/30/16 4:13 AM) 25 mEq/L (01/29/16 1:16 PM) CO2 [24-32 mEq/L] 11.0 mEq/L (01/31/16 5:55 AM) 12.3 mEq/L (01/30/16 4:13 AM) 14.6 mEq/L (01/29/16 1:16 PM) AGAP [10.0-20.0 mEq/L] CHEM PANEL 1 2 3 Most recent to oldest [Reference Range]: 1.07 mg/dL (01/31/16 5:55 AM) 1.04 mg/dL (01/30/16 4:13 AM) 1.28 mg/dL (01/29/16 1:16 PM) Creatinine Lvl [0.50-1.40 mg/dL] 76 mL/min/1.73m2 1 *NA* (01/31/16 5:55 AM) 79 mL/min/1.73m2 2 *NA* (01/30/16 4:13 AM) 61 mL/min/1.73m2 3 *NA* (01/29/16 1:16 PM) eGFR 15 mg/dL (01/31/16 5:55 AM) 14 mg/dL (01/30/16 4:13 AM) 15 mg/dL (01/29/16 1:16 PM) BUN [7-22 mg/dL] 82 mg/dL (01/31/16 5:55 AM) 106 mg/dL *HI* (01/30/16 4:13 AM) 137 mg/dL *HI* (01/29/16 1:16 PM) Glucose Lvl [70-99 mg/dL] 8.3 mg/dL *LOW* (01/31/16 5:55 AM) 8.1 mg/dL *LOW* (01/30/16 4:13 AM) 9.4 mg/dL (01/29/16 1:16 PM) Calcium Lvl [8.5-10.5 mg/dL] 3.2 mg/dL (01/31/16 5:55 AM) 7.2 mg/dL *HI* (01/30/16 4:13 AM) 1.4 mg/dL 4 *CRIT* (01/29/16 1:16 PM) Phosphorus [2.5-4.5 mg/dL] 2.3 mg/dL (01/31/16 5:55 AM) 2.4 mg/dL (01/30/16 4:13 AM) 2.2 mg/dL (01/29/16 1:16 PM) Magnesium Lvl [1.8-2.4 mg/dL] 1Result Comment: [...] be mul tiplied by the estimated BMI. 3Result Comment: The eGFR is calculated using the [...] be mul tiplied by the estimated BMI. 4Result Comment: Critical Result(s) called to at01/29/2016 13:46 _ by_trudi. Read back OK. CARDIAC ENZYMES 1 2 3 Most recent to oldest [Reference Range]: <0.02 ng/mL (01/29/16 11:19 PM) <0.02 ng/mL (01/29/16 5:32 PM) <0.02 ng/mL (01/29/16 1:16 PM) Troponin-I [0.00-0.40 ng/mL] LIPIDS 1 2 3 Most recent to oldest [Reference Range]: 2.85 *LOW* (01/29/16 11:19 PM) CHD Risk [4.00-7.30] 111 mg/dL (01/29/16 11:19 PM) Chol [<=199 mg/dL] 92 mg/dL (01/29/16 11:19 PM) Trig [<=149 mg/dL] 39 mg/dL *LOW* (01/29/16 11:19 PM) HDL [>=61 mg/dL] 54 mg/dL (01/29/16 11:19 PM) LDL (Calculated) [<=99 mg/dL] 18 *NA* (01/29/16 11:19 PM) VLDL SPECIAL CHEMISTRY 1 2 3 Most recent to oldest [Reference Range]: 5.3 % (01/29/16 11:19 PM) Hgb A1C [<=5.6 %] URINE AND STOOL 1 2 3 Most recent to oldest [Reference Range]: Clear (01/29/16 1:16 PM) UA Turbidity [Clear] Yellow *NA* (01/29/16 1:16 PM) UA Color [Yellow] 7.5 (01/29/16 1:16 PM) UA pH [5.0-8.0] 1.015 (01/29/16 1:16 PM) UA Spec Grav [<=1.030] Negative mg/dL (01/29/16 1:16 PM) UA Glucose [Negative mg/dL] Negative (01/29/16 1:16 PM) UA Blood [Negative] Negative mg/dL *NA* (01/29/16 1:16 PM) UA Ketones [Negative mg/dL] Negative mg/dL (01/29/16 1:16 PM) UA Protein [Negative mg/dL] 0.2 EU/dL (01/29/16 1:16 PM) UA Urobilinogen [0.1-1.0 EU/dL] Negative *NA* (01/29/16 1:16 PM) UA Bili [Negative] Negative (01/29/16 1:16 PM) UA Leuk Est [Negative] Negative (01/29/16 1:16 PM) UA Nitrite [Negative] None Seen (01/29/16 1:16 PM) UA WBC [None Seen] None Seen (01/29/16 1:16 PM) UA RBC [0-2] None Seen (01/29/16 1:16 PM) UA Bacteria [None Seen] None Seen (01/29/16 1:16 PM) UA Sq Epi [Few] HEMATOLOGY 1 2 3 Most recent to oldest [Reference Range]: 6.8 K/CMM (01/31/16 5:55 AM) 7.4 K/CMM (01/30/16 4:13 AM) 6.5 K/CMM (01/29/16 1:16 PM) WBC [3.7-10.4 K/CMM] 4.24 M/CMM *LOW* (01/31/16 5:55 AM) 4.39 M/CMM *LOW* (01/30/16 4:13 AM) 4.61 M/CMM *LOW* (01/29/16 1:16 PM) RBC [4.70-6.10 M/CMM] 12.9 g/dL *LOW* (01/31/16 5:55 AM) 12.9 g/dL *LOW* (01/30/16 4:13 AM) 14.0 g/dL (01/29/16 1:16 PM) Hgb [14.0-18.0 g/dL] 36.8 % *LOW* (01/31/16 5:55 AM) 38.1 % *LOW* (01/30/16 4:13 AM) 40.7 % *LOW* (01/29/16 1:16 PM) Hct [42.0-54.0 %] 86.8 fL (01/31/16 5:55 AM) 86.8 fL (01/30/16 4:13 AM) 88.4 fL (01/29/16 1:16 PM) MCV [80.0-94.0 fL] 30.4 pg (01/31/16 5:55 AM) 29.5 pg (01/30/16 4:13 AM) 30.4 pg (01/29/16 1:16 PM) MCH [27.0-31.0 pg] 35.0 g/dL (01/31/16 5:55 AM) 33.9 g/dL (01/30/16 4:13 AM) 34.3 g/dL (01/29/16 1:16 PM) MCHC [32.0-36.0 g/dL] 12.5 % (01/31/16 5:55 AM) 12.8 % (01/30/16 4:13 AM) 12.7 % (01/29/16 1:16 PM) RDW [11.5-14.5 %] 190 K/CMM (01/31/16 5:55 AM) 210 K/CMM (01/30/16 4:13 AM) 229 K/CMM (01/29/16 1:16 PM) Platelet [133-450 K/CMM] 9.4 fL (01/31/16 5:55 AM) 9.3 fL (01/30/16 4:13 AM) 9.4 fL (01/29/16 1:16 PM) MPV [7.4-10.4 fL] 63.2 % (01/31/16 5:55 AM) 69.9 % (01/30/16 4:13 AM) 55.8 % (01/29/16 1:16 PM) Segs [45.0-75.0 %] 24.2 % (01/31/16 5:55 AM) 21.6 % (01/30/16 4:13 AM) 34.4 % (01/29/16 1:16 PM) Lymphocytes [20.0-40.0 %] 9.2 % (01/31/16 5:55 AM) 7.5 % (01/30/16 4:13 AM) 7.2 % (01/29/16 1:16 PM) Monocytes [2.0-12.0 %] 2.4 % (01/31/16 5:55 AM) 0.2 % (01/30/16 4:13 AM) 1.3 % (01/29/16 1:16 PM) Eosinophils [0.0-4.0 %] 1.0 % (01/31/16 5:55 AM) 0.8 % (01/30/16 4:13 AM) 1.3 % *HI* (01/29/16 1:16 PM) Basophils [0.0-1.0 %] 4.3 K/CMM (01/31/16 5:55 AM) 5.2 K/CMM (01/30/16 4:13 AM) 3.6 K/CMM (01/29/16 1:16 PM) Segs-Bands # [1.5-8.1 K/CMM] 1.7 K/CMM (01/31/16 5:55 AM) 1.6 K/CMM (01/30/16 4:13 AM) 2.2 K/CMM (01/29/16 1:16 PM) Lymphocytes # [1.0-5.5 K/CMM] 0.6 K/CMM (01/31/16 5:55 AM) 0.6 K/CMM (01/30/16 4:13 AM) 0.5 K/CMM (01/29/16 1:16 PM) Monocytes # [0.0-0.8 K/CMM] 0.2 K/CMM (01/31/16 5:55 AM) 0.1 K/CMM (01/29/16 1:16 PM) Eosinophils # [0.0-0.5 K/CMM] 0.1 K/CMM (01/31/16 5:55 AM) 0.1 K/CMM (01/30/16 4:13 AM) 0.1 K/CMM (01/29/16 1:16 PM) Basophils # [0.0-0.2 K/CMM] 18.2 seconds *HI* (01/30/16 11:03 AM) 13.1 seconds (01/29/16 1:16 PM) PT [12.0-14.7 seconds] 1.47 *HI* (01/30/16 11:03 AM) 0.96 (01/29/16 1:16 PM) INR [0.85-1.17] 32.9 seconds (01/30/16 11:03 AM) 30.3 seconds (01/29/16 1:16 PM) PTT [22.9-35.8 seconds] Immunizations No data available for this section Procedures Procedure Date Related Diagnosis Body Site Stent placement1 1RCA x 2 Social History Social History Type Response Substance Abuse Use: None. Alcohol Never Smoking Status Never smoker; Exposure to Tobacco Smoke None; Cigarette Smoking Last 365 Days No; Reg Smoking Cessation Counseling No Assessment and Plan Extracted from: Title: [facility] Progress Note Author: Denny Daugherty MD Date: 01/31/16 Patient: BETH MARTINEZ Age: 60 years Sex: Male : 1955 Associated Diagnoses: None Author: Denny Daugherty MD Subjective Patient is a 60yo M w/ PMHx CAD s/p stents x 2 adherent to home ASA/Effient, HTN, HLD, GERD who presented to ER with complaints of diffuse chest pain x 24 hours, admitted for ACS rule out. Patient reports pressure-like chest pain today, as well as a headache and an "upset stomach." Patient had bowel movement this morning, first BM in 4 days. Patient states he does not want to take lisinopril because it makes him feeling "all worn out." Health Status Allergies: Allergic Reactions (All) Severity Not Documented NKDA- No reactions were documented. Objective Meds Scheduled Meds (6):aspirin, atorvastatin, docusate-senna (docusate-senna 50 mg- 8.6 mg oral tablet), lisinopril, metoprolol (metoprolol tartrate), prasugrel (Effient) Unscheduled Meds (1):iohexol (Omnipaque 350mg/ml) PRN Meds (4):acetaminophen (Tylenol), heparin (Heparin 80 unit/kg Bolus (Heparin Dosing Weight)), heparin (Heparin 40 unit/kg Bolus (Heparin Dosing Weight)), nitroglycerin (nitroglycerin SL Tab) One Time Meds (8):(Completed) atorvastatin, (Discontinued) heparin (Heparin - one time bolus for DVT/PE), (Completed) heparin (Heparin - one time bolus for DVT/PE), (Deleted) omeprazole, (Completed) ondansetron (Zofran), (Completed) pantoprazole (Protonix), (Completed) potassium phosphate-sodium phosphate (Neutra-Phos), (Completed) zolpidem (Ambien) Continuous Infusions (1):heparin 25,000 unit [18 unit/kg/hr] + Premix Diluent Dextrose 5% 500 mL (heparin additive 25,000 unit [18 unit/kg/hr] + Premix Diluent Dextrose 5% 500 mL) I&O Input/Output RecordInOutBal 01/2424hr Tot 357 0 357 01/2324hr Tot 250 300 -50 VS/Measurements Measurements from flowsheet : Measurements 01/29/2016 23:23 Heparin Dosing Weight (kg) 61.00 01/29/2016 22:30 Height 165.1 cm Height Collection Method Stated Weight 61.001 kg Dosing Weight Difference Percent -7.447 % Dosing Weight Collection Method Measured Body Surface Area 1.6726 m2 Body Mass Index 22.38 m2 , Vital Signs (last 24 hrs) Last Charted Temp Oral98.4 DegF (JAN 30 04:17) Heart Rate PeripheralL 55bpm (JAN 30 04:17) Resp Rate 20 BRMIN (JAN 30 04:17) SVT623 mmHg (JAN 30 04:17) DBP61 mmHg (JAN 30 04:17) KeM137 % (JAN 30:17) Physical Exam: General: Alert and oriented x3. Eye: Pupils are equal, round and reactive to light, Extraocular movements are intact. HENT: Normocephalic. Neck: Supple. Respiratory: Lungs clear to auscultation bilaterally. Cardiovascular: Regular rate and rhythym. No murmur or S3 appreciated.. Gastrointestinal: Soft, Non-tender. Genitourinary: No costovertebral angle tenderness. Lymphatics: No lymphadenopathy neck, axilla, groin. Musculoskeletal Normal range of motion. Integumentary: Warm. Neurologic: Alert, Oriented. Cognition and Speech: Oriented, Speech clear and coherent. Psychiatric: Cooperative, Appropriate mood & affect. Review / Management Results review: Labs (Last four charted values) WBC 6.8(SANJEEV 25)7.4(SANJEEV 24)6.5(SANJEEV 23) Hgb L 12.9(SANJEEV 25)L 12.9(SANJEEV 24)14.0(SANJEEV 23) Hct L 36.8(SANJEEV 25)L 38.1(SANJEEV 24)L 40.7(SANJEEV 23) Plt 190(SANJEEV 25)210(SANJEEV 24)229(SANJEEV 23) Na 144(SANJEEV 25)H 146(SANJEEV 24)141(SANJEEV 23) K 4.0(SANJEEV 25)4.3(SANJEEV 24)3.6(SANJEEV 23) CO2 27(SANJEEV 25)27(SANJEEV 24)25(SANJEEV 23) Cl H 110(SANJEEV 25)H 111(SANJEEV 24)105(SANJEEV 23) Cr 1.07(SANJEEV 25)1.04(ASNJEEV 24)1.28(SANJEEV 23) BUN 15(SANJEEV 25)14(SANJEEV 24)15(SANJEEV 23) Glucose Random 82(SANJEEV 25)H 106(SANJEEV 24)H 137(SANJEEV 23) Mg 2.3(SANJEEV 25)2.4(SANJEEV 24)2.2(SANJEEV 23) Phos 3.2(SANJEEV 25)H 7.2(SANJEEV 24)C 1.4(SANJEEV 23) Ca L 8.3(SANJEEV 25)L 8.1(SANJEEV 24)9.4(SANJEEV 23) PT H 18.2(SANJEEV 24)13.1(SANJEEV 23) INR H 1.47(SANJEEV 24)0.96(SANJEEV 23) PTT 32.9(SANJEEV 24)30.3(SANJEEV 23) Troponin <0.02(SANJEEV 23)<0.02(SANJEEV 23)<0.02(SANJEEV 23). TTE 01/30/2016: Conclusions 1) Normal biventricular size and systolic function. LVEF 60-65% 2) Normal diastolic function. 3) No significant valvular abnormalities. 4) RV systolic pressure estimated 45 mmHg, assuming RA pressure 10 mmHg. 5) No pericardial effusion. 6) Normal aortic root dimensions. 7) Compared with prior study 2014, there is no significant change. Impression and Plan Assessment: Patient is a 60yo M w/ PMHx CAD s/p stents x 2 adherent to home ASA/Effient, HTN, HLD, GERD who presented to ER with complaints of diffuse chest pain x 24 hours, admitted for ACS rule-out. CV #Chest pain - Possible ACS - Hx of significant CAD - EKG without signs of acute ischemia - Troponin negative x 2, will trend for third measurement - S/P home ASA and Effient today, will continue inpatient - Not currently on Heparin - Refused Nitro in ER - Atorvastatin 20mg PO daily at home, will continue - Metoprolol tartrate 25mg BID daily at home, will continue - CTA without acute findings - TTE 01/30/2016 - 60-65% EF, normal systolic and diastolic function, no significant change since 2015 study. -Cath 01/30/2016: CONCLUSION:Patent mid and proximal RCA stents with no significant coronary artery disease in the distal RCA, OM1, and mid LAD. -CTA pulmonary embolism rule out today #HTN - SBPs 170s - 180s at arrival - On Metoprolol tartrate 25mg BID PO at home - Continue home medications - Continue to monitor #HLD - On Atorvastatin 20mg PO daily at home - Continue home meds - Lipid panel pending Resp - No known acute issues - Satting well on room air - CXR clean -Nodule in lung -> referral for outpatient CT in 12 months -Chest CTA pulm embo - R/o PE Renal/Electrolytes - BMP w/ Cr at baseline - Phos low at 1.4 - K+ 3.6, Mg+ 2.2 - Will put on electrolyte replacement protocol - Daily BMPs - S/P contrast for CTA, monitor kidney function GI - Hx of GERD - Pantoprazole 40mg PO daily - NPO before procedure, heart healthy after cath -U/S liver for vascular shunt in the right posterior lobe of the liver found on CTA: IMPRESSION: Intrahepatic portosystemic shunt between the right posterior portal vein and hepatic vein. Endocrine - No hx of DM - Glucose 137 - Continue to trend blood glucose ID - Afebrile - No leukocytosis - CXR clean - UA clean Heme - CBC with no leukocytosis - Hb at baseline - Daily CBCs Addendum I have personally seen and examined the patient with the resident. I agree with the by Matt, management and plan as discussed, and outlined in the note. Henrry -- Pt admitted with chest pain, normal cath yestreday, Echo showed normal LVEF MD on -- Angina free 01/31/2016 -- He has Intrahepatic portosystemic shunt between the right posterior portal vein and 11:43 hepatic vein -- He did have a BM yestreday, feeling much better -- D/C Home today Extracted from: Title: [facility] Discharge Summary Author: Denny Daugherty MD Date: 01/30/16 ADMISSION DATE: 01/29/2016 DISCHARGE DATE: 01/30/2016 ADMITTING PHYSICIAN: Henrry Gutierrez MD DISCHARGING PHYSICIAN: Henrry Gutierrez MD ADMISSION DIAGNOSIS: Chest pain DISCHARGE DIAGNOSIS: Unstable Angina, CAD SERVICE: [facility] CONSULTS: none PROCEDURES: Left heart cath HPI: Patient is a 60yo M w/ PMHx CAD s/p stents x 2 adherent to home ASA/Effient, HTN, HLD, GERD who presented to ER with complaints of diffuse chest pain x 24 hours. Patient says he 'worked very hard at work' yesterday, but that pain started late at night while at rest. Patient took no medications and waited for symptoms to go away. When he awoke this morning he felt too unwell to go to work and noticed the chest pain was worsening again, thus prompting him to visit the ER. In the ER, EKG with NSR, appropriate rate, no signs of acute ischemia, possible LVH based on S-wave in V1 and R-waves in V5 - V6. Trops negative x 2. Patient received ASA prior to arrival, took daily Effient, refused Nitro in the ER, also s/p Morphine x 2 and Dilaudid x 1. Patient w/ last ECHO 04/2015 that showed basically normal findings and intact EF at 65 - 70%. Patient had a cath during that hospital stay and was found to have 80% lesion in the RCA that was later stented x 2. 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 In the ER patient with SBPs 170s - 190s and HR 50s - 60s, satting well on RA and in no acute distress. BMP at baseline, Phos low at 1.4. Patient was also reporting that a component of his chest pain was radiating to his interscapular/neck region and so had a CTA Chest that revealed no aortic pathology but "large vascular shunt in posterior right liver", otherwise no acute pathology. Remaining ROS and PE without significant findings. COURSE: Patient admitted to hospital with chest pain for ACS rule out. EKG without signs of acute ischemia, troponins negative. Patient was started on home medications atorvastatin 20 mg PO, metoprolol tartrate 25mg BID. CT chest was done and showed no acute findings, but did show a vascular shunt in the right posterior lobe of the liver, which was investigated with U/S (results are pending). Patient undewernt LHC which revealed non obstructive CAD with patent stents in RCA. DISCHARGE CONDITION: Stable DISPOSITION: Home ACTIVITY: Activity as tolerated DIET: Heart Healthy Diet MEDICATIONS: Aspirin 81mg PO, Atorvastatin 20mg PO, Metoprolol 25mg PO, Lisinopril 2.5 mg PO, Prasugrel 10 mg PO INSTRUCTIONS: Resume home medications FOLLOW UP: Follow up with PCP in 2 weeks I have personally seen and examined the patient with the resident. I agree with the management and plan as discussed, and outlined in the note. Extracted from: Title: CCU Note Author: Henrry Gutierrez MD Date: 01/29/16 Patient: BETH MARTINEZ Age: 60 years Sex: Male : 1955 Associated Diagnoses: None Author: Henrry Gutierrez MD Chief Complaint: Chest pain Basic Information Time Seen: Date & Time 01/29/2016 18:55. Admit information: From ER . Present at bedside: Family member. Source of history: Self, Medical record. Referral source: Emergency department. History limitation: None. Advance directive: Full code. History of Present Illness Patient is a 60yo M w/ PMHx CAD s/p stents x 2 adherent to home ASA/Effient, HTN, HLD, GERD who presented to ER with complaints of diffuse chest pain x 24 hours. Patient says he 'worked very hard at work' yesterday, but that pain started late at night while at rest. Patient took no medications and waited for symptoms to go away. When he awoke this morning he felt too unwell to go to work and noticed the chest pain was worsening again, thus prompting him to visit the ER. In the ER, EKG with NSR, appropriate rate, no signs of acute ischemia, possible LVH based on S-wave in V1 and R-waves in V5 - V6. Trops negative x 2. Patient received ASA prior to arrival, took daily Effient, refused Nitro in the ER, also s/p Morphine x 2 and Dilaudid x 1. Patient w/ last ECHO 04/2015 that showed basically normal findings and intact EF at 65 - 70%. Patient had a cath during that hospital stay and was found to have 80% lesion in the RCA that was later stented x 2. 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 In the ER patient with SBPs 170s - 190s and HR 50s - 60s, satting well on RA and in no acute distress. Not on Heparin drip currently. BMP at baseline, Phos low at 1.4. Patient was also reporting that a component of his chest pain was radiating to his interscapular/neck region and so had a CTA Chest that revealed no aortic pathology but "large vascular shunt in posterior right liver", otherwise no acute pathology. Remaining ROS and PE without significant findings. Review of Systems Constitutional: Negative. Ear/Nose/Mouth/Throat: Negative. Respiratory: Shortness of breath. Cardiovascular: Chest pain: Left sided, Midsternal. Gastrointestinal: Negative. Genitourinary: Negative. Endocrine: Negative. Immunologic: Negative. Musculoskeletal: Negative. Neurologic: Negative. Psychiatric: Negative. Health Status Allergies: Allergic Reactions (All) Severity Not Documented NKDA- No reactions were documented., Allergies (1) ActiveReaction NKDANone Documented Current medications: (Selected) Inpatient Medications Ordered Dulcolax Laxative: 5 mg, 1 tab, PO, ONCE, PRN: Constipation Omnipaque 350mg/ml: 100 mL, IVP, ONCALL sodium phosphate + sodium chloride 0.9% INJ 250 mL: 30 mmol, 10 mL, 65 ml/hr, IVPB, ONCE, PRN: Abnormal Lab Result Pending Complete nitroglycerin SL Tab: 0.4 mg, 1 tab, SL, Q5Min Prescriptions Prescribed Aspirin Low Dose 81 mg oral tablet: 1 tab, PO, Daily, 30 tab, 5 Refill(s) atorvastatin 20 mg oral tablet: 20 mg, 1 tab, PO, QPM, 30 tab, 5 Refill(s) metoprolol tartrate 25 mg oral tablet: 25 mg, PO, Q12H, 60 tab, 5 Refill(s) ticagrelor 90 mg oral tablet: 90 mg, 1 tab, PO, Q12H, 60 tab, 5 Refill(s) Documented Medications Documented dicyclomine 20 mg oral tablet: 20 mg, 1 tab, PO, TID, 0 Refill(s), Medications (3) Active Scheduled: (1) iohexol 350 mg/ml 100 ml inj 100 mL, IVP, ONCALL Continuous: (0) PRN: (2) bisacodyl 5 mg ECT 5 mg 1 tab, PO, ONCE sodium phosphate 3 mmol/1 ml 15 ml vial + sodium chloride 0.9% INJ 250 mL 30 mmol 10 mL, IVPB, ONCE Problem list: No qualifying data available Histories PMH: CAD s/p stenting x 2, HTN, HLD, GERD PSH: RCA stenting x 2 (04/2015 via [facility]) SH: Never smoked, occasional ETOH FH: None Past Medical History: Resolved HTN (hypertension) ([id number]): Resolved. Heart attack ([id number]): Resolved. Family History: No family history items have been selected or recorded. Procedure history: Stent placement ([id number]). Comments: 05/01/2015 05:13 - Danny Thomas RN RCA x 2 Social History Social & Psychosocial Habits Tobacco 01/29/2016 Use: Never smoker Exposure to Tobacco Smoke None Cigarette Smoking Last 365 Days No Reg Smoking Cessation Counseling No . Physical Examination Intake and Output No I & O Data Available VS/Measurements Vital Signs (last 24 hrs) Last Charted Temp Oral97.8 DegF (JAN 28 11:16) Heart Rate ApicalL 57bpm (JAN 28 18:34) Resp Rate 19 BRMIN (JAN 28 18:34) SBPH 178mmHg (JAN 28 18:34) DBP88 mmHg (JAN 28 18:34) KaH411 % (JAN 28 18:) General: Alert and oriented, No acute distress, . Eye: Pupils are equal, round and reactive to light, Extraocular movements are intact, . HENT: Normocephalic, . Neck: Supple, Non-tender, . Respiratory: Lungs are clear to auscultation, Respirations are non-labored, . Cardiovascular: Normal rate, Regular rhythm, No murmur, . Gastrointestinal: Soft, Non-tender, . Genitourinary: No costovertebral angle tenderness. Musculoskeletal Normal range of motion. Normal strength. . Integumentary: Warm, Dry. Neurologic: Alert, Oriented. Cognition and Speech: Oriented, Speech clear and coherent. Psychiatric: Cooperative. Review / Management Results review: Labs (Last four charted values) WBC 6.5(JAN 28) Hgb 14.0(JAN 28) Hct L 40.7(JAN 28) Plt 229(JAN 28) Na 141(JAN 28) K 3.6(JAN 28) CO2 25(JAN 28) Cl 105(JAN 28) Cr 1.28(JAN 28) BUN 15(JAN 28) Glucose Random H 137(JAN 28) Mg 2.2(JAN 28) Phos C 1.4(JAN 28) Ca 9.4(JAN 28) PT 13.1(JAN 28) INR 0.96(JAN 28) PTT 30.3(JAN 28) Troponin <0.02(JAN 28)<0.02(JAN 28). Lines and Tubes: (no lines, tubes, drains information documentated) . EKG: NSR, regular rate, no signs of acute ischemia, borderline positive LVH criteria based on Sokolov-Culp Chest X-Ray: No acute abnormality ECHO: Pending Other Imaging: CTA Chest (see HPI) Impression and Plan Assessment: Patient is a 60yo M w/ PMHx CAD s/p stents x 2 adherent to home ASA/Effient, HTN, HLD, GERD who presented to ER with complaints of diffuse chest pain x 24 hours, admitted for ACS rule-out. Plan: CV #Chest pain - Possible ACS - Hx of significant CAD - EKG without signs of acute ischemia - Troponin negative x 2, will trend for third measurement - S/P home ASA and Effient today, will continue inpatient - Not currently on Heparin - Refused Nitro in ER - Atorvastatin 20mg PO daily at home, will continue - Metoprolol tartrate 25mg BID daily at home, will continue- ECHO pending - Possible cath - CTA without acute findings #HTN - SBPs 170s - 180s since arrival - On Metoprolol tartrate 25mg BID PO at home - Continue home medications - Continue to monitor #HLD - On Atorvastatin 20mg PO daily at home - Continue home meds - Lipid panel pending Resp - No known acute issues - Satting well on room air - CXR clean Renal/Electrolytes - BMP w/ Cr at baseline - Phos low at 1.4 - K+ 3.6, Mg+ 2.2 - Will put on electrolyte replacement protocol - Daily BMPs - S/P contrast for CTA, monitor kidney function GI - Hx of GERD - Pantoprazole 40mg PO daily - NPO after midnight in case of procedure in AM - No other known issues Endocrine - No hx of DM - Glucose 137 - Continue to trend blood glucose ID - Afebrile - No leukocytosis - CXR clean - UA clean Heme - CBC with no leukocytosis - Hb at baseline - Daily CBCs DVT PPx: None, DAPT GI PPx: Pantoprazole 40mg PO daily Diet: Heart healthy, then NPO after midnight Code status: Full code Dispo: Continue trending cardiac enzymes, EKGs, possible procedure in AM CCU/CIMU Daily Patient Safety Checklist Yes No Mechanical Ventilation? _ x 1. Sedation level addressed? _ _ 2. Sedation holiday performed if indicated? _ _ 3. Adequate pain control? _ _ 4. Delirium assessment done and addressed? _ _ 5. Restraints assessed/reordered? _ _ 6. PUD ppx? _ _ Blood Stream Infection Prevention: 1.Central Line necessity addressed? x _ _ vasoactive agents, _ TPN, _loss of venous access 2.Central Line duration > 5 days? _ x CAUTI Prevention: 1. Jay necessity addressed? x _ _ complete bedrest, _ urinary retention,_ 2. Jay duration > 3 days? _ x DVT Prevention: 1. VTE Advisor Completed on admission? x _ 2.DVT ppx? _ x Nutrition 1. Enteral Feeding within 48h? _ x Blood Glucose Control 1. 60 mg/dl< BG < 200mg/dl? x _ CAD/CHF/PCI Requirements: 1.ASA post CO? x _ 2.ACEi + BB in CHF? _ _ 3. Statinin CAD? x _ 4. DAPT post-PCI? x _ 5. Renal Protection Fluid Protocol Post-PCI? _ _ Discharge Planning 1. PT/OT? _ _ 2. Cardiac Rehab? _ _ 3. Case Management/Social Work Consult? _ _ Professional Services -Rasheed Eli M.D. PGY-I Department of Emergency Medicine Addendum I have personally seen and examined the patient with the resident. I agree with the by Matt, management and plan as discussed, and outlined in the note. Henrry -- Pt admitted with chest pain, ruled out for ACS with Kerry GREER on -- He is s/p PCI of the RCA 01/30/2016 -- Last stress test < years ago, did not show ischemia 09:14 -- CTA chest negative for dissection -- Echo -Normal LVEF -- Cath today for unstable angina
--- OUTSIDE RECORDS SUMMARY | 2018-10-26 10:57 | XMS REPORT | Summary of Care ---
Author Author [facility] Organization [facility] Address Unknown Phone Unavailable Encounter LUCA Longoria(KASH) [id number] Date(s): 05/15/15 - 05/16/15 [facility] [address] [place] [address]- [phone] Discharge Diagnosis: Bronchitis Discharge Disposition: Home Attending Physician: Qamar Pinon MD Vital Signs 1 2 3 Most recent to oldest [Reference Range]: 165.1 cm (05/15/15 5:40 PM) Height 1 2 3 Most recent to oldest [Reference Range]: 98 DegF (05/16/15 12:40 AM) 98.1 DegF (05/15/15 11:37 PM) 97.7 DegF (05/15/15 8:12 PM) Temperature Oral [96.4-99.1 DegF] 1 2 3 Most recent to oldest [Reference Range]: 151/77 mmHg *HI* (05/16/15 12:40 AM) 150/82 mmHg *HI* (05/15/15 11:37 PM) 154/94 mmHg *HI* (05/15/15 9:58 PM) Blood Pressure [90-140/60-90 mmHg] 1 2 3 Most recent to oldest [Reference Range]: 20 BRMIN (05/16/15 12:40 AM) 15 BRMIN (05/15/15 11:37 PM) 18 BRMIN (05/15/15 9:58 PM) Respiratory Rate [14-20 BRMIN] 1 2 3 Most recent to oldest [Reference Range]: 79 bpm (05/16/15 12:40 AM) 80 bpm (05/15/15 11:37 PM) 64 bpm (05/15/15 8:12 PM) Peripheral Pulse Rate [60-100 bpm] 1 2 3 Most recent to oldest [Reference Range]: 65.909 kg (05/15/15 5:40 PM) Weight 1 2 3 Most recent to oldest [Reference Range]: 24.18 m2 (05/15/15 5:40 PM) Body Mass Index Problem List Condition Effective Dates Status Health Status Informant Heart Resolved attack(Confirmed) HTN Resolved (hypertension)(Confi rmed) Allergies, Adverse Reactions, Alerts Substance Reaction Severity Status NKDA Active Medications albuterol-ipratropium 2.5-0.5 mg inhalation solution 3 mL, Route: NEB, Drug Form: SOLN, Dosing Weight 65.909, kg, Q30Min, STAT, Start date: 05/15/15 19:26:00, Duration: 3 doses or times, Stop date: 05/15/15 20:26: 00 Notes: (Same as: Duoneb) Start Date: 05/15/15 Stop Date: 05/15/15 Status: Completed aspirin 324 mg, Route: PO, ONCE, Dosing Weight 65.909, kg, Priority: STAT, Start date: 1 18:35:00, Stop date: 05/15/15 18:35:00 Start Date: 05/15/15 Stop Date: 05/15/15 Status: Completed predniSONE 60 mg, Route: PO, Drug form: TAB, ONCE, Dosing Weight 65.909, kg, Priority: STAT , Start date: 05/16/15 0:46:00, Stop date: 05/16/15 0:46:00 Start Date: 05/16/15 Stop Date: 05/16/15 Status: Completed predniSONE 50 mg oral tablet 50 mg=1 tab, PO, Daily, X 5 day, # 5 tab, 0 Refill(s) Start Date: 05/16/15 Stop Date: 05/21/15 Status: Ordered Saline Flush 0.9% 10 mL, Route: IVP, Drug Form: INJ, Dosing Weight 65.909, kg, PRN, PRN Line Flush , Start date: 05/15/15 18:35:00, Duration: 30 day, Stop date: 06/14/15 17:34:00 Notes: (Same as: BD Posiflush) Start Date: 05/15/15 Stop Date: 05/16/15 Status: Discontinued Solu-MEDROL 125 mg, Route: IVP, ONCE, Dosing Weight 65.909, kg, Priority: STAT, Start date: 05/16/15 0:01:00, Stop date: 05/16/15 0:01:00 Start Date: 05/16/15 Stop Date: 05/16/15 Status: Discontinued Results ELECTROLYTES Most recent to 1 2 oldest [Reference Range]: Sodium Lvl [135-145 140 mEq/L mEq/L] (05/15/15 6:47 PM) Potassium Lvl 4.1 mEq/L [3.5-5.1 mEq/L] (05/15/15 6:47 PM) Chloride Lvl [95-109 107 mEq/L mEq/L] (05/15/15 6:47 PM) CO2 [24-32 mEq/L] 28 mEq/L (05/15/15 6:47 PM) AGAP [10.0-20.0 9.1 mEq/L mEq/L] *LOW* (05/15/15 6:47 PM) CHEM PANEL Most recent to 1 2 oldest [Reference Range]: Creatinine Lvl 1.3 mg/dL [0.5-1.4 mg/dL] (05/15/15 6:47 PM) eGFR 60 mL/min/1.73m2 1 *NA* (05/15/15 6:47 PM) BUN [7-22 mg/dL] 12 mg/dL (05/15/15 6:47 PM) B/C Ratio [6-25] 9 (05/15/15 6:47 PM) Glucose Lvl [70-99 80 mg/dL mg/dL] (05/15/15 6:47 PM) Total Protein 7.9 g/dL [6.4-8.4 g/dL] (05/15/15 6:47 PM) Albumin Lvl [3.5-5.0 4.2 g/dL g/dL] (05/15/15 6:47 PM) Globulin [2.0-4.0 3.7 g/dL g/dL] (05/15/15 6:47 PM) A/G Ratio [0.7-1.6] 1.1 (05/15/15 6:47 PM) Calcium Lvl 8.8 mg/dL [8.5-10.5 mg/dL] (05/15/15 6:47 PM) ALT [0-65 unit/L] 46 unit/L (05/15/15 6:47 PM) AST [0-37 unit/L] 33 unit/L (05/15/15 6:47 PM) Alk Phos [39-136 170 unit/L unit/L] *HI* (05/15/15 6:47 PM) Bili Total [0.2-1.3 0.8 mg/dL mg/dL] (05/15/15 6:47 PM) 1Result Comment: The eGFR is calculated using [...] tiplied by the estimated BMI. CARDIAC ENZYMES Most recent to 1 2 oldest [Reference Range]: Total CK [12-191 80 unit/L unit/L] (05/15/15 6:47 PM) CK MB [0.5-3.6 <0.5 ng/mL <0.5 ng/mL ng/mL] (05/15/15 11:28 PM) (05/15/15 6:47 PM) CK MB Index <0.6 [0.0-2.5] (05/15/15 6:47 PM) Troponin-I <0.02 ng/mL <0.02 ng/mL [0.00-0.40 ng/mL] (05/15/15 11:28 PM) (05/15/15 6:47 PM) BNP [<=100 pg/mL] 10 pg/mL (05/15/15 6:47 PM) HEMATOLOGY Most recent to 1 2 oldest [Reference Range]: WBC [3.7-10.4 K/CMM] 6.0 K/CMM (05/15/15 6:47 PM) RBC [4.70-6.10 4.82 M/CMM M/CMM] (05/15/15 6:47 PM) Hgb [14.0-18.0 g/dL] 13.9 g/dL *LOW* (05/15/15 6:47 PM) Hct [42.0-54.0 %] 42.4 % (05/15/15:47 PM) MCV [80.0-94.0 fL] 87.9 fL (05/15/15:47 PM) MCH [27.0-31.0 pg] 28.9 pg (05/15/15:47 PM) MCHC [32.0-36.0 32.9 g/dL g/dL] (05/15/15:47 PM) RDW [11.5-14.5 %] 13.3 % (05/15/15:47 PM) Platelet [133-450 259 K/CMM K/CMM] (05/15/15:47 PM) MPV [7.4-10.4 fL] 8.7 fL (05/15/15 6:47 PM) Segs [45.0-75.0 %] 53.4 % (05/15/15:47 PM) Lymphocytes 31.4 % [20.0-40.0 %] (05/15/15 6:47 PM) Monocytes [2.0-12.0 10.3 % %] (05/15/15 6:47 PM) Eosinophils [0.0-4.0 4.0 % %] (05/15/15 6:47 PM) Basophils [0.0-1.0 0.9 % %] (05/15/15 6:47 PM) Segs-Bands # 3.2 K/CMM [1.5-8.1 K/CMM] (05/15/15 6:47 PM) Lymphocytes # 1.9 K/CMM [1.0-5.5 K/CMM] (05/15/15 6:47 PM) Monocytes # [0.0-0.8 0.6 K/CMM K/CMM] (05/15/15 6:47 PM) Eosinophils # 0.2 K/CMM [0.0-0.5 K/CMM] (05/15/15 6:47 PM) Basophils # [0.0-0.2 0.1 K/CMM K/CMM] (05/15/15 6:47 PM) Immunizations No data available for this section Procedures Procedure Date Related Diagnosis Body Site Stent placement1 1RCA x 2 Social History Social History Type Response Smoking Status Never smoker; Exposure to Tobacco Smoke None; Cigarette Smoking Last 365 Days No; Reg Smoking Cessation Counseling No Assessment and Plan No data available for this section
--- OUTSIDE RECORDS SUMMARY | 2018-10-26 10:57 | XMS REPORT | Continuity of Care Document ---
Author Author [facility] Interface Address Unknown Phone Unavailable Problems Problem Status Onset Date Classification Date Reported Comments Source DYSPHAGIA Active 09/29/[address] [facility] Other forms of stomatitis 03/15/2018 09/25/2018 [facility] K12.1 - OTHER FORMS OF STOMATITIS Active 07/29/2017 [facility] ACS Active 01/29/2016 [facility] CHEST PAIN Active 01/29/2016 [facility] M75.02 - ADHESIVE CAPSULITIS OF LEFT SH Active 10/20/2015 [facility] Discharge Diagnosis: Bronchitis 05/16/2015 05/19/2015 [facility] 786.5/794.39 Active 04/24/2015 [facility] UNK Active 04/24/2015 [facility] Heart attack Resolved Problem 09/25/2018 [facility] HTN (<span ID="[id number]">Confirmed</span>) Resolved Problem 09/25/2018 [facility] Coronary artery disease Resolved Problem 09/25/2018 [facility] GERD (<span ID="[id number]">Confirmed</span>) Resolved Problem 09/25/2018 [facility] Hyperlipidemia Resolved Problem 09/25/2018 [facility] CHEST PAIN NOS Active [facility] ACUTE ISCHEMIC HEART DISEASE, UNSPECIFIE Active [facility] DYSPHONIA Active [facility] Medications Medication Details Route Status Patient Instructions Ordering Provider Order Date Source Ondansetron 4 MG Oral Tablet [Zofran] 4 mg=1 tab, PO, Q8H, PRN Nausea/vomiting, # 30 tab, 0 Refill(s) Active 01/31/2016 [facility] bisacodyl 5 mg oral enteric coated tablet 5 mg=1 tab, PO, ONCE, PRN Constipation, # 12 tab, 0 Refill(s) Active 01/31/2016 [facility] Ondansetron 4 MG Oral Tablet [Zofran] 4 mg=1 tab, PO, Q8H, PRN Nausea/vomiting, # 30 tab, 0 Refill(s) Inactive 01/31/2016 [facility] Dulcolax Laxative =1 supp, OK, Daily, PRN constipation, # 5 supp, 0 Refill(s) Inactive 01/31/2016 [facility] Ondansetron 4 MG Oral Tablet [Zofran] 4 mg=1 tab, PO, Q8H, PRN Nausea/vomiting, # 30 tab, 0 Refill(s) Inactive 01/31/2016 [facility] Dicyclomine 20 mg, 1 tab, Route: PO, Drug form: TAB, QID, Dosing Weight 61.001, kg, Start date: 01/31/16 13:00:00 CDT, Duration: 30 day, Stop date: 03/01/16 9:00:00 CDTNotes: (Same as: Bentyl) Inactive 01/31/2016 [facility] Protonix 40 mg, 1 tab, Route: PO, Drug form: ECTAB, Daily, Start date: 01/31/16 12:30:00 CDT, Duration: 30 day, Stop date: 03/01/16 9:00:00 CDTNotes: Tablet should not be chewed or crushed. (Same as: Protonix) Inactive 01/31/2016 [facility] Omeprazole 20 mg, Route: PO, Drug form: ECCAP, BID-Before Meals, Dosing Weight 61.001, kg, Start date: 01/31/16 10:59:00 CDT, Duration: 30 day, Stop date: 03/01/16 7:30:00 CDT Inactive 01/31/2016 [facility] Zofran 4 mg, 2 mL, Route: IVP, Drug form: INJ, ONCE, Dosing Weight 61.001, kg, Start date: 01/31/16 7:44:00 CDT, Stop date: 01/31/16 7:44:00 CDTNotes: (Same as: Zofran) MEDICATION WASTE Product Size: 4 mg Product Wasted: ___ mg Inactive 01/31/2016 [facility] Protonix 40 mg, 1 tab, Route: PO, Drug form: ECTAB, ONCE, Start date: 01/30/16 22:23:00 CDT, Stop date: 01/30/16 22:23:00 CDTNotes: Tablet should not be chewed or crushed. (Same as: Protonix) Inactive 01/31/2016 [facility] Ambien 5 mg, 1 tab, Route: PO, Drug form: TAB, ONCE, Dosing Weight 61.001, kg, Priority: NOW, Start date: 01/30/16 22:17:00 CDT, Stop date: 01/30/16 22:17:00 CDTNotes: (Same As: Ambien) Inactive 01/31/2016 [facility] Omeprazole 40 mg, Route: PO, Drug form: ECCAP, ONCE, Dosing Weight 61.001, kg, Priority: NOW, Start date: 01/30/16 22:17:00 CDT, Stop date: 01/30/16 22:17:00 CDT Inactive 01/31/2016 [facility] Lisinopril 2.5 mg, 1 tab, Route: PO, Drug form: TAB, Daily, Dosing Weight 65.909, kg, Start date: 01/30/16 21:37:00 CDT, Duration: 30 day, Stop date: 02/29/16 9:00:00 CDTNotes: (Same as: Prinivil) No Longer Active 01/31/2016 [facility] atorvastatin 20 mg, 1 tab, Route: PO, Drug form: TAB, Bedtime, Dosing Weight 65.909, kg, Start date: 01/30/16 21:00:00 CDT, Duration: 30 day, Stop date: 02/28/16 21:00:00 CDTNotes: (Same As: Lipitor) No Longer Active 01/31/2016 [facility] lisinopril 2.5 mg oral tablet 2.5 mg=1 tab, PO, Daily, # 30 tab, 3 Refill(s) No Longer Active 01/30/2016 [facility] Nitroglycerin 0.4 mg, 1 tab, Route: SL, Drug form: TAB, Q5Min, Dosing Weight 61.001, kg, PRN Chest Pain, Start date: 01/30/16 13:55:00 CDT, Duration: 3 doses or times, Stop date: Limited # of timesNotes: (Same as: Nitroquick, Nitrostat) No Longer Active 01/30/2016 [facility] Sodium Chloride 0.154 MEQ/ML Injectable Solution 750 mL, Rate: 187.5 ml/hr, Infuse over: 4 hr, Route: IV, Dosing Weight 61.001 kg, Total Volume: 750, Start date: 01/30/16 13:55:00 CDT, Duration: 10 hr, Stop date: 01/30/16 23:54:00 CDT Inactive 01/30/2016 [facility] Zofran 4 mg, 2 mL, Route: IVP, Drug form: INJ, ONCE, Dosing Weight 61.001, kg, Priority: NOW, Start date: 01/30/16 12:51:00 CDT, Stop date: 01/30/16 12:51:00 CDTNotes: (Same as: Zofran) MEDICATION WASTE Product Size: 4 mg Product Wasted: ___ mg Inactive 01/30/2016 [facility] Tylenol 325 mg, 1 tab, Route: PO, Drug form: TAB, Q6H, Dosing Weight 61.001, kg, PRN Pain Score 1-3, Start date: 01/30/16 11:45:00 CDT, Duration: 30 day, Stop date: 02/29/16 11:44:00 CDTNotes: Do not exceed 4 gm/day. (Same as: Tylenol) No Longer Active 01/30/2016 [facility] Ibuprofen 400 mg, Route: PO, Drug form: TAB, Q4H, Dosing Weight 61.001, kg, PRN Pain Score 1-3, Start date: 01/30/16 11:26:00 CDT, Duration: 30 day, Stop date: 02/29/16 11:25:00 CDT Inactive 01/30/2016 [facility] Iohexol 100 mL, Route: IVP, Drug Form: SOLN, Dosing Weight 61.001, kg, ONCALL, STAT, Start date: 01/30/16 11:08:00 CDT, Duration: 1 doses or times, Dose=2.2ml/kg, Max lnjo=[id number] -- "To be infused by Radiology Staff ONLY" Inactive 01/30/2016 [facility] Heparin 40 unit/kg Bolus (Heparin Dosing Weight) Route: IVP, PRN, 2,400 unit, 2.4 mL, Drug form: INJ, PRN, Heparin Protocol, Start date: 01/30/16 10:29:00 CDT Stop date: 02/29/16 10:28:00 CDT, 30 day No Longer Active 01/30/2016 [facility] heparin additive 25,000 unit [18 unit/kg/hr] + Premix Diluent Dextrose 5% 500 mL 500 mL, Rate: 21.96 ml/hr, Infuse over: 22.8 hr, Route: IV, Dosing Weight 61 kg, Total Volume: 500 mL, Start date: 01/30/16 10:29:00 CDT, Duration: 30 day, Stop date: 02/29/16 10:28:00 CDT No Longer Active 01/30/2016 [facility] Heparin 80 unit/kg Bolus (Heparin Dosing Weight) Route: IVP, PRN, 4,900 unit, 4.9 mL, Drug form: INJ, PRN, Heparin Protocol, Start date: 01/30/16 10:29:00 CDT Stop date: 02/29/16 10:28:00 CDT, 30 day No Longer Active 01/30/2016 [facility] Heparin - one time bolus for DVT/PE 4,900 unit, 4.9 mL, Route: IV, Drug form: INJ, ONCE, Dosing Weight 61.001, kg, Priority: STAT, Start date: 01/30/16 10:29:00 CDT, Stop date: 01/30/16 10:29:00 CDT Inactive 01/30/2016 [facility] heparin additive 25,000 unit [18 unit/kg/hr] + Premix Diluent Dextrose 5% 500 mL 500 mL, Rate: 21.96 ml/hr, Infuse over: 22.8 hr, Route: IV, Dosing Weight 61.001 kg, Total Volume: 500 mL, Start date: 01/30/16 10:19:00 CDT, Duration: 30 day, Stop date: 02/29/16 10:18:00 CDT Inactive 01/30/2016 [facility] Heparin 40 unit/kg Bolus (Heparin Dosing Weight) Pharmacy To Manage, Route: IVP, PRN, Drug form: INJ, PRN, Heparin Protocol, Start date: 01/30/16 10:19:00 CDT Stop date: 02/29/16 10:18:00 CDT, 30 day Inactive 01/30/2016 [facility] Heparin 80 unit/kg Bolus (Heparin Dosing Weight) Pharmacy To Manage, Route: IVP, PRN, Drug form: INJ, PRN, Heparin Protocol, Start date: 01/30/16 10:19:00 CDT Stop date: 02/29/16 10:18:00 CDT, 30 day Inactive 01/30/2016 [facility] Heparin - one time bolus for DVT/PE 4,900 unit, Route: IV, Drug form: INJ, ONCE, Dosing Weight 61.001, kg, Priority: STAT, Start date: 01/30/16 10:19:00 CDT, Stop date: 01/30/16 10:19:00 CDT, Initial Bolus Inactive 01/30/2016 [facility] Docusate Sodium 50 MG / sennosides, MCFP 8.6 MG Oral Tablet 1 tab, Route: PO, Drug Form: TAB, Dosing Weight 61.001, kg, BID, Start date: 01/30/16 10:18:00 CDT, Duration: 30 day, Stop date: 02/29/16 9:00:00 CDTNotes: (Same as Senokot-S) Equiv. to Sahara-Colace. No Longer Active 01/30/2016 [facility] Aspirin 81 mg, 1 tab, Route: PO, Drug form: ECTAB, Daily, Dosing Weight 61.001, kg, Start date: 01/30/16 9:00:00 CDT, Duration: 30 day, Stop date: 02/28/16 9:00:00 CDTNotes: Do not crush or chew. (Same As: Ecotrin) No Longer Active 01/30/2016 [facility] Effient 10 mg, 1 tab, Route: PO, Drug form: TAB, Daily, Dosing Weight 61.001, kg, Start date: 01/30/16 8:34:00 CDT, Duration: 30 day, Stop date: 02/28/16 9:00:00 CDTNotes: Same as Effient For patients 60kg, w ithout history of TIA/Ischemic stroke and without likely bypass surgery No Longer Active 01/30/2016 [facility] Neutra-Phos 1 pkt, Route: PO, Drug Form: PDR/REC, Dosing Weight 65.909, kg, ONCE, Start date: 01/29/16 19:25:00 CDT, Stop date: 01/29/16 19:25:00 CDTNotes: (Same as: Neutra-Phos) Each 1.25 gm pkt has 250mg phos phorous. Mix w/2.5oz water and stir. Inactive 01/30/2016 [facility] metoprolol tartrate 25 mg, 1 tab, Route: PO, Drug form: TAB, BID, Dosing Weight 65.909, kg, Start date: 01/29/16 19:15:00 CDT, Duration: 30 day, Stop date: 02/28/16 17:00:00 CDTNotes: (Same as: Lopressor) No Longer Active 01/30/2016 [facility] atorvastatin 80 mg, 1 tab, Route: PO, Drug form: TAB, ONCE, Dosing Weight 65.909, kg, Start date: 01/29/16 19:15:00 CDT, Stop date: 01/29/16 19:15:00 CDTNotes: Same as Lipitor Inactive 01/30/2016 [facility] Nitroglycerin 0.4 mg, 1 tab, Route: SL, Drug form: TAB, Q5Min, Dosing Weight 65.909, kg, PRN Chest Pain, Start date: 01/29/16 19:09:00 CDT, Duration: 3 doses or times, Stop date: 01/31/16 0:00:00 CDTNotes: (Same a s:Nitroquick, Nitrostat) "Do Not Crush" Sublingual tablet No Longer Active 01/30/2016 [facility] prasugrel 10 MG Oral Tablet [Effient] 10 mg=1 tab, PO, Daily, 0 Refill(s) Active 01/29/2016 [facility] Omeprazole 40 mg, PO, BID, 0 Refill(s) Active 01/29/2016 [facility] triazolam 0.25 mg oral tablet 0.5 mg=2 tab, PO, Bedtime, PRN Sleep, 0 Refill(s) Active 01/29/2016 [facility] Dulcolax Laxative 5 mg, 1 tab, Route: PO, Drug form: ECTAB, ONCE, Dosing Weight 65.909, kg, PRN Constipation, Start date: 01/29/16 18:03:00 CDTNotes: (Same As: Dulcolax, Correctol) (Do Not Crush) "Do Not Crush" No Longer Active 01/29/2016 [facility] Dilaudid 1 mg, Route: IVP, ONCE, Dosing Weight 65.909, kg, Start date: 01/29/16 18:01:00 CDT, Stop date: 01/29/16 18:01:00 CDT Inactive 01/29/2016 [facility] Morphine 4 mg, 1 mL, Route: IVP, Drug form: INJ, ONCE, Dosing Weight 65.909, kg, Priority: STAT, Start date: 01/29/16 16:59:00 CDT, Stop date: 01/29/16 16:59:00 CDTNotes: (Same as:MORPhine Sulfate) Inactive 01/29/2016 [facility] sodium phosphate + sodium chloride 0.9% INJ 250 mL 30 mmol, 10 mL, Route: IVPB, ONCE, Dosing Weight 65.909, kg, PRN Abnormal Lab Result, For NON-ICU Patients Only., Start date: 01/29/16 15:01:00 CDT Inactive 01/29/2016 [facility] Iohexol 100 mL, Route: IVP, Drug Form: SOLN, Dosing Weight 65.909, kg, ONCALL, STAT, Start date: 01/29/16 14:17:00 CDT, Duration: 1 doses or times, Stop date: 01/29/16 21:00:00 CDT, Dose=2.2ml/kg, Max xwwb=[id number] -- "To be infused by Radiology Staff ONLY"Notes: (same as:Omnipaque 350). WASTE: F/P - Black; E - Municipal Trash Bin No Longer Active 01/29/2016 [facility] Nitroglycerin 0.4 mg, 1 tab, Route: SL, Drug form: TAB, Q5Min, Dosing Weight 65.909, kg, Start date: 01/29/16 12:50:00 CDT, Duration: 3 doses or times, Stop date: 01/29/16 13:00:00 CDTNotes: (Same as:Nitroquick, N itrostat) "Do Not Crush" Sublingual tablet Inactive 01/29/2016 [facility] Nitroglycerin 0.4 mg, Route: SL, Q5Min, Dosing Weight 65.909, kg, Start date: 01/29/16 12:45:00 CDT, Duration: 30 day, Stop date: 02/28/16 12:40:00 CDT Inactive 01/29/2016 [facility] Morphine 4 mg, 1 mL, Route: IVP, Drug form: INJ, ONCE, Dosing Weight 65.909, kg, Priority: STAT, Start date: 01/29/16 12:42:00 CDT, Stop date: 01/29/16 12:42:00 CDTNotes: (Same as:MORPhine Sulfate) Inactive 01/29/2016 [facility] Ondansetron 4 mg, 2 mL, Route: IVP, Drug form: INJ, ONCE, Dosing Weight 65.909, kg, Priority: STAT, Start date: 01/29/16 12:42:00 CDT, Stop date: 01/29/16 12:42:00 CDTNotes: (Same as: Zorojas) MEDICATION WASTE Product Size: 4 mg Product Wasted: _0__ mg Inactive 01/29/2016 [facility] Prednisone 60 mg, Route: PO, Drug form: TAB, ONCE, Dosing Weight 65.909, kg, Priority: STAT, Start date: 05/16/15 0:46:00, Stop date: 05/16/15 0:46:00 Inactive 05/16/2015 [facility] predniSONE 50 mg oral tablet 50 mg=1 tab, PO, Daily, X 5 day, # 5 tab, 0 Refill(s) Active 05/16/2015 [facility] Solu-Medrol 125 mg, Route: IVP, ONCE, Dosing Weight 65.909, kg, Priority: STAT, Start date: 05/16/15 0:01:00, Stop date: 05/16/15 0:01:00 Inactive 05/16/2015 [facility] Albuterol 0.833 MG/ML / Ipratropium [place] 0.167 MG/ML Inhalant Solution 3 mL, Route: NEB, Drug Form: SOLN, Dosing Weight 65.909, kg, Q30Min, STAT, Start date: 05/15/15 19:26:00, Duration: 3 doses or times, Stop date: 05/15/15 20:26:00Notes: (Same as: Duoneb) Inactive 05/16/2015 [facility] Aspirin 324 mg, Route: PO, ONCE, Dosing Weight 65.909, kg, Priority: STAT, Start date: 05/15/15 18:35:00, Stop date: 05/15/15 18:35:00 Inactive 05/15/2015 [facility] Saline Flush 0.9% 10 mL, Route: IVP, Drug Form: INJ, Dosing Weight 65.909, kg, PRN, PRN Line Flush, Start date: 05/15/15 18:35:00, Duration: 30 day, Stop date: 06/14/15 17:34:00Notes: (Same as: BD Posiflush) No Longer Active 05/15/2015 [facility] metoprolol tartrate 25 mg, 1 tab, Route: PO, Drug form: TAB, Q12H, Dosing Weight 67.273, kg, Start date: 05/01/15 21:00:00, Duration: 30 day, Stop date: 05/31/15 9:00:00Notes: (Same as: Lopressor) Inactive 05/02/2015 [facility] ticagrelor 90 mg oral tablet 90 mg=1 tab, PO, Q12H, # 60 tab, 5 Refill(s) Active 05/01/2015 [facility] metoprolol tartrate 25 mg oral tablet 25 mg, PO, Q12H, # 60 tab, 5 Refill(s) Active 05/01/2015 [facility] atorvastatin 20 mg oral tablet 20 mg=1 tab, PO, QPM, # 30 tab, 5 Refill(s) Active 05/01/2015 [facility] Aspirin Low Dose 81 mg oral tablet =1 tab, PO, Daily, # 30 tab, 5 Refill(s) Active 05/01/2015 [facility] atorvastatin 20 mg, 2 tab, Route: PO, Drug form: TAB, Bedtime, Dosing Weight 67.273, kg, Start date: 04/30/15 21:00:00, Duration: 30 day, Stop date: 05/29/15 21:00:00Notes: (Same As: Lipitor) No Longer Active 05/01/2015 [facility] Ticagrelor 90 mg, 1 tab, Route: PO, Drug form: TAB, Q12H, Dosing Weight 67.273, kg, Start date: 04/30/15 21:00:00, Duration: 30 day, Stop date: 05/30/15 9:00:00Notes: (Same as: Brilinta) No Longer Active 05/01/2015 [facility] Famotidine 20 mg, 1 tab, Route: PO, Drug form: TAB, Q12H, Dosing Weight 67.273, kg, Start date: 04/30/15 21:00:00, Duration: 30 day, Stop date: 05/30/15 9:00:00Notes: (Same as: Pepcid) No Longer Active 05/01/2015 [facility] Miralax 17 gm, 1 pkt, Route: PO, Drug form: PWDR, Daily, Dosing Weight 67.273, kg, PRN Constipation, Start date: 04/30/15 18:20:00, Duration: 30 day, Stop date: 05/30/15 18:19:00Notes: Dissolve in 8 oz of water or juice. (Same as: Miralax) No Longer Active 04/30/2015 [facility] Zofran 4 mg, 2 mL, Route: IVP, Drug form: INJ, Q4H, Dosing Weight 67.273, kg, PRN Nausea, Start date: 04/30/15 18:20:00, Duration: 30 day, Stop date: 05/30/15 18:19:00Notes: (Same as: Zofran) MEDICATION WASTE Product Size: 4 mg Product Wasted: ___ mg No Longer Active 04/30/2015 [facility] Tylenol 650 mg, 20.3 mL, Route: PO, Drug form: LIQ, Q6H, Dosing Weight 67.273, kg, PRN Other -See Comment, Start date: 04/30/15 18:20:00, Duration: 30 day, Stop date: 05/30/15 18:19:00, fever, pain, headache Notes: Max ptalgjsvusjjd=4010hf/day (4 gm/day). (Same as: Tylenol) No Longer Active 04/30/2015 [facility] Restoril 15 mg, 1 cap, Route: PO, Drug form: CAP, Bedtime, Dosing Weight 67.273, kg, PRN Sleep, Start date: 04/30/15 18:20:00, Duration: 30 day, Stop date: 05/30/15 18:19:00Notes: (Same As: Restoril) No Longer Active 04/30/2015 [facility] Clonidine Hydrochloride 0.1 MG Oral Tablet 0.1 mg, 1 tab, Route: PO, Drug form: TAB, Q6H, Dosing Weight 67.273, kg, PRN Elevated BP, Start date: 04/30/15 18:20:00, Duration: 30 day, Stop date: 05/30/15 18:19:00, SBP > 165Notes: (Same As: Catapres) No Longer Active 04/30/2015 [facility] Aspirin 81 MG Enteric Coated Tablet 81 mg, 1 tab, Route: PO, Drug form: ECTAB, Daily, Dosing Weight 67.273, kg, Start date: 04/30/15 17:01:00, Duration: 30 day, Stop date: 05/30/15 9:00:00Notes: Do not crush or chew. (Same As: Ecotrin) No Longer Active 04/30/2015 [facility] Acetaminophen 325 MG / Hydrocodone Bitartrate 5 MG Oral Tablet 1 tab, Route: PO, Drug Form: TAB, Dosing Weight 67.273, kg, Q4H, PRN Pain Score 1-5, Start date: 04/30/15 16:12:00, Duration: 30 day, Stop date: 05/30/15 16:11:00Notes: (Same as: Todd 325/5) Do not exceed 4gm/day of acetaminophen. No Longer Active 04/30/2015 [facility] Nitroglycerin 0.4 mg, 1 tab, Route: SL, Drug form: TAB, Q5Min, Dosing Weight 67.273, kg, PRN Chest Pain, Start date: 04/30/15 16:12:00, Duration: 3 doses or times, Stop date: Limited # of timesNotes: (Same as:Nitr oquick, Nitrostat) "Do Not Crush" Sublingual tablet No Longer Active 04/30/2015 [facility] Diphenhydramine 25 mg, 1 tab, Route: PO, Drug form: TAB, Bedtime, Dosing Weight 67.273, kg, PRN Insomnia, Start date: 04/30/15 16:12:00, Duration: 30 day, Stop date: 05/30/15 16:11:00 No Longer Active 04/30/2015 [facility] Ondansetron 4 mg, 1 tab, Route: PO, Drug form: TAB, Q8H, Dosing Weight 67.273, kg, PRN Nausea & Vomiting, Start date: 04/30/15 16:12:00, Duration: 30 day, Stop date: 05/30/15 16:11:00Notes: (Same as: Zofran) Inactive 04/30/2015 [facility] Sodium Chloride 0.154 MEQ/ML Injectable Solution 1,200 mL, Rate: 100 ml/hr, Infuse over: 12 hr, Route: IV, Dosing Weight 67.273 kg, Total Volume: 1,200, Start date: 04/30/15 16:12:00, Duration: 12 hr, Stop date: 05/01/15 4:11:00 No Longer Active 04/30/2015 [facility] Nitroglycerin 0.4 mg, 1 tab, Route: SL, Drug form: TAB, Q5Min, Dosing Weight 67.273, kg, PRN Chest Pain, Start date: 04/30/15 13:11:00, Duration: 3 doses or times, Stop date: Limited # of timesNotes: (Same as:Nitr oquick, Nitrostat) "Do Not Crush" Sublingual tablet Inactive 04/30/2015 [facility] Acetaminophen 325 MG / Hydrocodone Bitartrate 5 MG Oral Tablet 1 tab, Route: PO, Drug Form: TAB, Dosing Weight 67.273, kg, Q4H, PRN Pain Score 1-5, Start date: 04/30/15 13:11:00, Duration: 30 day, Stop date: 05/30/15 13:10:00Notes: (Same as: Todd 325/5) Do not exceed 4gm/day of acetaminophen. No Longer Active 04/30/2015 [facility] Ondansetron 4 mg, 1 tab, Route: PO, Drug form: TAB, Q8H, Dosing Weight 67.273, kg, PRN Nausea & Vomiting, Start date: 04/30/15 13:11:00, Duration: 30 day, Stop date: 05/30/15 13:10:00Notes: (Same as: Zofran) Inactive 04/30/2015 [facility] Diphenhydramine 25 mg, 1 tab, Route: PO, Drug form: TAB, Bedtime, Dosing Weight 67.273, kg, PRN Insomnia, Start date: 04/30/15 13:11:00, Duration: 30 day, Stop date: 05/30/15 13:10:00 No Longer Active 04/30/2015 [facility] normal saline 0.9% IV 1,000 mL 1,000 mL, Rate: 100 ml/hr, Infuse over: 10 hr, Route: IV, Dosing Weight 67.273 kg, Total Volume: 1,000, Start date: 04/30/15 11:08:00, Duration: 30 day, Stop date: 05/30/15 11:07:00 No Longer Active 04/30/2015 [facility] omeprazole 40 mg oral delayed release capsule 40 mg=1 cap, PO, BID, 0 Refill(s) No Longer Active 04/30/2015 [facility] dicyclomine 20 mg oral tablet 20 mg=1 tab, PO, TID, 0 Refill(s) Active 04/30/2015 [facility] Aspirin Low Dose 81 mg oral tablet =1 tab, PO, Daily, # 100 tab, 3 Refill(s) No Longer Active 04/30/2015 [facility] Allergies, Adverse Reactions, Alerts Substance Category Reaction Severity Reaction type Status Date Reported Comments Source Immunizations Immunization Date Given Site Status Last Updated Comments Source Results Order Name Results Value Reference Range Date Interpretation Comments Source Neck soft tissue w contrast CT Neck soft tissue w contrast CT EXAM: CT NECK WITH CONTRAST DATE: 2018 12:46 PM CDT INDICATION: 63 years old Male patient with of K12.1 Other forms of stomatitis- Ulcer of the mouth - burning feeling on lips and tongue past month. COMPARISON: None. TECHNIQUE: Axial CT images of the neck were obtained after intravenous contrast. Reformatted images in the sagittal and coronal plane were included. FINDINGS: Visualized portion of the brain do not reveal a significant abnormality. Visualized orbits appear unremarkable. Mucous retention cyst within the left maxilla sinus, remaining visualized paranasal sinuses are clear. Mastoid air cells and middle ear cavities are clear bilaterally. The adenoid and tonsillar soft tissue are not enlarged. The tongue, tongue base, and floor of mouth are grossly unremarkable. Both submandibular glands are symmetrical and normal in size. Both parotid glands appear unremarkable. Thyroid gland is homogeneous and normal in size. No definite evident mass lesion is identified in the neck. No definite abnormally enlarged cervical lymph nodes by size criteria. Prevertebral and paravertebral soft tissue appear unremarkable. Visualized carotid and vertebral arteries does not demonstrate hemodynamically significant stenosis. Dominant right jugular vein. Cervical spine demonstrates mild degenerative changes but no aggressive lytic or sclerotic bony lesions. Skull base and facial bones demonstrate no significant abnormalities. Visualized lung apices are clear. Airway is widely patent. IMPRESSION: 1. No definite abnormal mass lesion or abnormal adenopathy in the neck. 2. Atherosclerotic plaques within bilateral carotid bifurcation and mild degenerative changes in the cervical spine. 2018 - - Read by: Brad Leblanc MD Dictated Date/time: 03/08/18 13:19 Electronically Signed by: Brad Leblanc MD 03/08/18 13:31 FINAL REPORT [facility] CHEM PANEL Magnesium Lvl 2.3 mg/dL 1.8 - 2.4 01/31/2016 [facility] CHEM PANEL eGFR 76 mL/min/1.73m2 01/31/2016 Result Comment: The eGFR is calculated using the [...] from the National Kid[employer] Disease Education Program (NKDEP) which additionally recommends that when the eGFR is used in patients with extremes of body mass index for purposes of drug dosing, the eGFR should be multiplied by the estimated BMI. [facility] CHEM PANEL Sodium Lvl 144 meq/L 135 - 145 01/31/2016 [facility] CHEM PANEL Potassium Lvl 4.0 meq/L 3.5 - 5.1 01/31/2016 [facility] CHEM PANEL Chloride Lvl 110 meq/L 95 - 109 01/31/2016 [facility] CHEM PANEL BUN 15 mg/dL 7 - 22 01/31/2016 [facility] CHEM PANEL Creatinine Lvl 1.07 mg/dL 0.50 - 1.40 01/31/2016 [facility] CHEM PANEL CO2 27 meq/L 24 - 32 01/31/2016 [facility] CHEM PANEL Calcium Lvl 8.3 mg/dL 8.5 - 10.5 01/31/2016 [facility] CHEM PANEL Glucose Lvl 82 mg/dL 70 - 99 01/31/2016 [facility] CHEM PANEL AGAP 11.0 meq/L 10.0 - 20.0 01/31/2016 [facility] CHEM PANEL Phosphorus 3.2 mg/dL 2.5 - 4.5 01/31/2016 [facility] HEMATOLOGY Eosinophils # 0.2 K/CMM 0.0 - 0.5 01/31/2016 [facility] HEMATOLOGY Basophils # 0.1 K/CMM 0.0 - 0.2 01/31/2016 [facility] HEMATOLOGY Segs 63.2 % 45.0 - 75.0 01/31/2016 [facility] HEMATOLOGY Lymphocytes 24.2 % 20.0 - 40.0 01/31/2016 [facility] HEMATOLOGY Eosinophils 2.4 % 0.0 - 4.0 01/31/2016 [facility] HEMATOLOGY Monocytes 9.2 % 2.0 - 12.0 01/31/2016 [facility] HEMATOLOGY Basophils 1.0 % 0.0 - 1.0 01/31/2016 [facility] HEMATOLOGY Segs-Bands # 4.3 K/CMM 1.5 - 8.1 01/31/2016 [facility] HEMATOLOGY Monocytes # 0.6 K/CMM 0.0 - 0.8 01/31/2016 [facility] HEMATOLOGY Lymphocytes # 1.7 K/CMM 1.0 - 5.5 01/31/2016 [facility] HEMATOLOGY RDW 12.5 % 11.5 - 14.5 01/31/2016 [facility] HEMATOLOGY MPV 9.4 fL 7.4 - 10.4 01/31/2016 [facility] HEMATOLOGY Platelet 190 K/CMM 133 - 450 01/31/2016 [facility] HEMATOLOGY MCH 30.4 pg 27.0 - 31.0 01/31/2016 [facility] HEMATOLOGY MCV 86.8 fL 80.0 - 94.0 01/31/2016 [facility] HEMATOLOGY MCHC 35.0 g/dL 32.0 - 36.0 01/31/2016 [facility] HEMATOLOGY Hct 36.8 % 42.0 - 54.0 01/31/2016 [facility] HEMATOLOGY Hgb 12.9 g/dL 14.0 - 18.0 01/31/2016 [facility] HEMATOLOGY WBC 6.8 K/CMM 3.7 - 10.4 01/31/2016 [facility] HEMATOLOGY RBC 4.24 M/CMM 4.70 - 6.10 01/31/2016 [facility] Chest Pulmonary Embolism CTA Chest Pulmonary Embolism CTA EXAM: CT Chest WITH contrast DATE: 01/30/2016 10:19 AM CDT INDICATION: Chest pain COMPARISON: CTA chest 01/29/2016 TECHNIQUE: Chest was scanned utilizing a multidetector helical scanner from the lung apex through the level of the adrenal glands with administration of IV contrast. Coronal and sagittal reformations were obtained. PE protocol was performed. IV CONTRAST: 76 ml of Omnipaque 350 RADIATION DOSE: Total DLP: 594 mGy*cm Estimated effective dose: (DLP x 0.014 x size factor) mSv COMPLICATIONS: None FINDINGS: LINES/ TUBES: None. LUNGS AND AIRWAYS: Redemonstration of a 0.2 cm nodule within the right upper lobe (series 5 image 91) and 0.3 cm right lower lobe (series 5 image 109). No organized consolidations. No filling defect within the main and left and right pulmonary arteries to the segmental levels. The main airways are patent. PLEURA: No pleural effusions. HEART AND MEDIASTINUM: The thyroid gland is unremarkable. No mediastinal, hilar or axillary lymphadenopathy. The heart is within normal limits in size without pericardial effusions. The main pulmonary artery measures 2.5 cm and the aorta at the level of the main pulmonary artery measures 3.3 cm, both within normal limits in caliber. Redemonstration of a right coronary artery stent. Calcification of the left main coronary artery. UPPER ABDOMEN: Previously described vascular shunt within the right hepatic lobe not well visualized in this study secondary to contrast bolus timing. Findings of cholecystectomy. BONES: The visualized bony thorax is within normal limits. SOFT TISSUES: Unremarkable. IMPRESSION: 1. No pulmonary embolism to the segmental level. Main pulmonary artery and aorta at the level of the pulmonary artery are within normal limits in caliber. 2. Redemonstration of two less than 0.4 cm right sided pulmonary nodules. Follow- up chest CT in 12 months if patient is high risk (smoking or cancer history). 3. No organized consolidations. 4. Right coronary stent. 5. Left main coronary artery calcification. 6. Previously visualized right hepatic lobe vascular shunt not seen in current study secondary to contrast bolus timing. 01/31/2016 - - Read by: Sourav Ramos MD Dictated Date/time: 01/31/16 13:02 Electronically Signed by: Sourav Ramos MD 01/31/16 13:21 FINAL REPORT [facility] HEMATOLOGY PTT 32.9 s 22.9 - 35.8 01/30/2016 [facility] HEMATOLOGY INR 1.47 0.85 - 1.17 01/30/2016 [facility] HEMATOLOGY PT 18.2 s 12.0 - 14.7 01/30/2016 [facility] Liver Doppler US Liver Doppler US EXAM: US LIVER WITH DOPPLER DATE: 01/30/2016 1600 hours INDICATION: Abdominal pain, acute ADDITIONAL INFORMATION: None. COMPARISON: None. TECHNIQUE: Multiplanar grayscale, color Doppler and spectral Doppler ultrasound images of the liver and upper abdomen, and spectral Doppler. FINDINGS: Liver: Craniocaudal length: 12.32 cm. Normal. Echogenicity: Normal. Surface nodularity: None. Mass (size and location): None. Hepatic and portal vasculature: Hepatic artery: Patent with antegrade pulsatile flow. Resistive index: Main hepatic artery: 0.75 Left hepatic artery: 0.68 Portal veins: Patent with normal hepatopetal monophasic flow. Hepatic veins: Patent with normal hepatofugal multiphasic flow. Splenic artery: Patent with antegrade pulsatile flow. Splenic vein: Patent with normal flow. Right posterior portal vein to hepatic vein shunt is identified. Spleen: Craniocaudal length: 11.24 cm. Normal. Mass or focal lesion (size and location): None. Abdominal aorta and IVC: Visualized portions are normal. Ascites: None. IMPRESSION: Intrahepatic portosystemic shunt between the right posterior portal vein and hepatic vein. 01/30/2016 - - This report was dictated by a Procurement Officer/Fellow. I have personally reviewed the images as well as the Resident's interpretation and agree with the findings. Read by: Kartik Connolly MD Resident: Kartik Connolly MD Dictated Date/time: 01/30/16 16:34 Electronically Signed by: Francheska Yanez 01/31/16 11:00 FINAL REPORT [facility] CHEM PANEL Magnesium Lvl 2.4 mg/dL 1.8 - 2.4 01/30/2016 [facility] CHEM PANEL Phosphorus 7.2 mg/dL 2.5 - 4.5 01/30/2016 [facility] ELECTROLYTES AGAP 12.3 meq/L 10.0 - 20.0 01/30/2016 [facility] ELECTROLYTES eGFR 79 mL/min/1.73m2 01/30/2016 Result Comment: The eGFR is calculated using the [...] from the National Kidney Disease Education Program (NKDEP) which additionally recommends that when the eGFR is used in patients with extremes of body mass index for purposes of drug dosing, the eGFR should be multiplied by the estimated BMI. [facility] ELECTROLYTES Chloride Lvl 111 meq/L 95 - 109 01/30/2016 [facility] ELECTROLYTES CO2 27 meq/L 24 - 32 01/30/2016 [facility] ELECTROLYTES Calcium Lvl 8.1 mg/dL 8.5 - 10.5 01/30/2016 [facility] ELECTROLYTES Glucose Lvl 106 mg/dL 70 - 99 01/30/2016 [facility] ELECTROLYTES BUN 14 mg/dL 7 - 22 01/30/2016 [facility] ELECTROLYTES Creatinine Lvl 1.04 mg/dL 0.50 - 1.40 01/30/2016 [facility] ELECTROLYTES Sodium Lvl 146 meq/L 135 - 145 01/30/2016 [facility] ELECTROLYTES Potassium Lvl 4.3 meq/L 3.5 - 5.1 01/30/2016 [facility] HEMATOLOGY Platelet 210 K/CMM 133 - 450 01/30/2016 [facility] HEMATOLOGY RDW 12.8 % 11.5 - 14.5 01/30/2016 [facility] HEMATOLOGY MPV 9.3 fL 7.4 - 10.4 01/30/2016 [facility] HEMATOLOGY RBC 4.39 M/CMM 4.70 - 6.10 01/30/2016 [facility] HEMATOLOGY Hct 38.1 % 42.0 - 54.0 01/30/2016 [facility] HEMATOLOGY Hgb 12.9 g/dL 14.0 - 18.0 01/30/2016 [facility] HEMATOLOGY WBC 7.4 K/CMM 3.7 - 10.4 01/30/2016 [facility] HEMATOLOGY MCV 86.8 fL 80.0 - 94.0 01/30/2016 [facility] HEMATOLOGY MCHC 33.9 g/dL 32.0 - 36.0 01/30/2016 [facility] HEMATOLOGY MCH 29.5 pg 27.0 - 31.0 01/30/2016 [facility] HEMATOLOGY Basophils 0.8 % 0.0 - 1.0 01/30/2016 [facility] HEMATOLOGY Lymphocytes # 1.6 K/CMM 1.0 - 5.5 01/30/2016 [facility] HEMATOLOGY Eosinophils 0.2 % 0.0 - 4.0 01/30/2016 [facility] HEMATOLOGY Monocytes 7.5 % 2.0 - 12.0 01/30/2016 [facility] HEMATOLOGY Segs-Bands # 5.2 K/CMM 1.5 - 8.1 01/30/2016 [facility] HEMATOLOGY Basophils # 0.1 K/CMM 0.0 - 0.2 01/30/2016 [facility] HEMATOLOGY Monocytes # 0.6 K/CMM 0.0 - 0.8 01/30/2016 [facility] HEMATOLOGY Segs 69.9 % 45.0 - 75.0 01/30/2016 [facility] HEMATOLOGY Lymphocytes 21.6 % 20.0 - 40.0 01/30/2016 [facility] CARDIAC ENZYMES Troponin-I null 0.00 - 0.40 01/30/2016 [facility] LIPIDS Trig 92 mg/dL <=149 mg/dL 01/30/2016 [facility] LIPIDS Chol 111 mg/dL <=199 mg/dL 01/30/2016 [facility] LIPIDS HDL 39 mg/dL >=61 mg/dL 01/30/2016 [facility] LIPIDS VLDL 18 01/30/2016 [facility] LIPIDS LDL (Calculated) 54 mg/dL <=99 mg/dL 01/30/2016 [facility] LIPIDS CHD Risk 2.85 4.00 - 7.30 01/30/2016 [facility] SPECIAL CHEMISTRY Hgb A1C 5.3 % <=5.6 % 01/30/2016 [facility] CARDIAC ENZYMES Troponin-I null 0.00 - 0.40 01/29/2016 [facility] CARDIAC ENZYMES Troponin-I null 0.00 - 0.40 01/29/2016 [facility] CHEM PANEL Magnesium Lvl 2.2 mg/dL 1.8 - 2.4 01/29/2016 [facility] CHEM PANEL Phosphorus 1.4 mg/dL 2.5 - 4.5 01/29/2016 Result Comment: Critical Result(s) called to at01/29/2016 13:46 _ by_trudi. Read back OK. [facility] ELECTROLYTES AGAP 14.6 meq/L 10.0 - 20.0 01/29/2016 [facility] ELECTROLYTES eGFR 61 mL/min/1.73m2 01/29/2016 Result Comment: The eGFR is calculated using the [...] from the National Kidney Disease Education Program (NKDEP) which additionally recommends that when the eGFR is used in patients with extremes of body mass index for purposes of drug dosing, the eGFR should be multiplied by the estimated BMI. [facility] ELECTROLYTES Potassium Lvl 3.6 meq/L 3.5 - 5.1 01/29/2016 [facility] ELECTROLYTES Chloride Lvl 105 meq/L 95 - 109 01/29/2016 [facility] ELECTROLYTES Glucose Lvl 137 mg/dL 70 - 99 01/29/2016 [facility] ELECTROLYTES CO2 25 meq/L 24 - 32 01/29/2016 [facility] ELECTROLYTES Calcium Lvl 9.4 mg/dL 8.5 - 10.5 01/29/2016 [facility] ELECTROLYTES BUN 15 mg/dL 7 - 22 01/29/2016 [facility] ELECTROLYTES Creatinine Lvl 1.28 mg/dL 0.50 - 1.40 01/29/2016 [facility] ELECTROLYTES Sodium Lvl 141 meq/L 135 - 145 01/29/2016 [facility] HEMATOLOGY Lymphocytes # 2.2 K/CMM 1.0 - 5.5 01/29/2016 [facility] HEMATOLOGY Monocytes # 0.5 K/CMM 0.0 - 0.8 01/29/2016 [facility] HEMATOLOGY Eosinophils # 0.1 K/CMM 0.0 - 0.5 01/29/2016 [facility] HEMATOLOGY Basophils # 0.1 K/CMM 0.0 - 0.2 01/29/2016 [facility] HEMATOLOGY Monocytes 7.2 % 2.0 - 12.0 01/29/2016 [facility] HEMATOLOGY Eosinophils 1.3 % 0.0 - 4.0 01/29/2016 [facility] HEMATOLOGY Basophils 1.3 % 0.0 - 1.0 01/29/2016 [facility] HEMATOLOGY Segs-Bands # 3.6 K/CMM 1.5 - 8.1 01/29/2016 [facility] HEMATOLOGY Segs 55.8 % 45.0 - 75.0 01/29/2016 [facility] HEMATOLOGY Lymphocytes 34.4 % 20.0 - 40.0 01/29/2016 [facility] HEMATOLOGY PTT 30.3 s 22.9 - 35.8 01/29/2016 [facility] HEMATOLOGY INR 0.96 0.85 - 1.17 01/29/2016 [facility] HEMATOLOGY PT 13.1 s 12.0 - 14.7 01/29/2016 [facility] HEMATOLOGY Hgb 14.0 g/dL 14.0 - 18.0 01/29/2016 [facility] HEMATOLOGY RBC 4.61 M/CMM 4.70 - 6.10 01/29/2016 [facility] HEMATOLOGY WBC 6.5 K/CMM 3.7 - 10.4 01/29/2016 [facility] HEMATOLOGY Hct 40.7 % 42.0 - 54.0 01/29/2016 [facility] HEMATOLOGY MCV 88.4 fL 80.0 - 94.0 01/29/2016 [facility] HEMATOLOGY MCHC 34.3 g/dL 32.0 - 36.0 01/29/2016 [facility] HEMATOLOGY RDW 12.7 % 11.5 - 14.5 01/29/2016 [facility] HEMATOLOGY MCH 30.4 pg 27.0 - 31.0 01/29/2016 [facility] HEMATOLOGY Platelet 229 K/CMM 133 - 450 01/29/2016 [facility] HEMATOLOGY MPV 9.4 fL 7.4 - 10.4 01/29/2016 [facility] URINE AND STOOL UA RBC None Seen (01/29/16 1:16 PM) 0 - 2 01/29/2016 [facility] URINE AND STOOL UA Bacteria None Seen (01/29/16 1:16 PM) None Seen 01/29/2016 [facility] URINE AND STOOL UA Sq Epi None Seen (01/29/16 1:16 PM) Few 01/29/2016 [facility] URINE AND STOOL UA WBC None Seen (01/29/16 1:16 PM) None Seen 01/29/2016 [facility] URINE AND STOOL UA Bili Negative *NA* (01/29/16 1:16 PM) Negative 01/29/2016 [facility] URINE AND STOOL UA pH 7.5 5.0 - 8.0 01/29/2016 [facility] URINE AND STOOL UA Protein Negative mg/dL Negative mg/dL 01/29/2016 [facility] URINE AND STOOL UA Blood Negative (01/29/16 1:16 PM) Negative 01/29/2016 [facility] URINE AND STOOL UA Ketones Negative mg/dL Negative mg/dL 01/29/2016 [facility] URINE AND STOOL UA Glucose Negative mg/dL Negative mg/dL 01/29/2016 [facility] URINE AND STOOL UA Leuk Est Negative (01/29/16 1:16 PM) Negative 01/29/2016 [facility] URINE AND STOOL UA Nitrite Negative (01/29/16 1:16 PM) Negative 01/29/2016 [facility] URINE AND STOOL UA Urobilinogen 0.2 EU/dL 0.1 - 1.0 01/29/2016 [facility] URINE AND STOOL UA Turbidity Clear (01/29/16 1:16 PM) Clear 01/29/2016 [facility] URINE AND STOOL UA Spec Grav 1.015 <=1.030 01/29/2016 [facility] URINE AND STOOL UA Color Yellow *NA* (01/29/16 1:16 PM) Yellow 01/29/2016 [facility] Chest CTA Chest CTA EXAM: CTA CHEST WITH CONTRAST DATE: 01/29/2016 2:14 PM CDT INDICATION: Chest pain COMPARISON: CT chest without contrast dated 05/15/2015. TECHNIQUE: Volumetric CT acquisition of the chest, during the aortic phase, after intravenous contrast. Axial, sagittal, coronal, and oblique MIP reconstructions are created at the acquisition workstation. IV Contrast: 88 mL Omnipaque 350 contrast DLP: 601 mGy-cm FINDINGS: Lines and tubes: None. Lower neck: Unremarkable. Heart and Mediastinum: The heart is normal in size. There is no pericardial effusion. A right coronary artery stent is again demonstrated. There is calcification of the left main coronary artery. No unexpected intracardiac filling defects. The aorta demonstrates normal caliber and morphology. No acute aortic pathology demonstrated. No pulmonary embolus to the segmental level. Pleura: No pleural effusion or pneumothorax. Lymph Nodes: There is no thoracic lymphadenopathy. Lungs: Essentially clear other than a couple of nodules measuring less than 4 mm on axial images 103, 138. Trachea: Patent. Upper abdomen: 3.6 x 1.7 cm enhancing focus in segment 7 of the liver is demonstrated, similar in attenuation and continuous with contrast in the adjacent right hepatic vein. This may represent shunting from the nearby portal vein or hepatic artery. There was hypodensity, possibly representing this lesion on CT chest from 05/15/2015. Bones and soft tissues: Intact. IMPRESSION: 1. No acute findings in the chest. 2. No acute aortic pathology. 3. Stent in the right coronary artery. 4. Left main coronary calcification at its bifurcation. 5. Sub 4 mm nodules, for which chest CT follow-up in 12 months can be performed if there is a history of smoking. 6. Incidental note of a vascular shunt in the right posterior lobe of the liver, which may have been present as of 05/15/2015. Further evaluation is recommended with Doppler ultrasound of the liver. Further evaluation can be considered with liver protocol CT or MR as well. 01/29/2016 - - Read by: Arsalan Fairbanks MD Dictated Date/time: 01/29/16 16:08 Electronically Signed by: Arsalan Fairbanks MD 01/29/16 21:42 FINAL REPORT [facility] Chest 2 views DX Chest 2 views DX EXAM: XR CHEST 2 VIEWS DATE: 01/29/2016 12:41 PM CDT INDICATION: Chest pain COMPARISON: 05/15/2015 TECHNIQUE: PA and lateral chest FINDINGS: No pneumothorax. The lungs are clear. No pleural effusion. The heart size is normal for technique. No acute bony abnormality is identified. IMPRESSION: No acute cardiopulmonary abnormality. 01/29/2016 - - Read by: Samir Ramirez MD Dictated Date/time: 01/29/16 13:47 Electronically Signed by: Samir Ramirez MD 01/29/16 13:48 FINAL REPORT [facility] Shoulder series DX Shoulder series DX EXAM: XR LEFT SHOULDER 3 VIEWS DATE: 10/16/2015 12:07 PM [employer]CHNIC[employer] INDICATION: M25.512 Pain in left shoulder COMPARISON: None available TECHNIQUE: AP views in internal and external rotation, and a scapular Y view of the left shoulder. FINDINGS: No acute fracture or malalignment is identified. Small osteophytes are present in the acromioclavicular joint. No subacromial narrowing is present. A small focus of calcific tendinopathy is present at the supraspinatus tendon insertion. IMPRESSION: Calcific tendinopathy of the supraspinatus tendon insertion. 10/16/2015 - - Read by: Kimberly Son MD Dictated Date/time: 10/16/15 14:52 Electronically Signed by: Kimberly Son MD 10/16/15 14:52 FINAL REPORT [facility] CARDIAC ENZYMES Troponin-I null 0.00 - 0.40 05/16/2015 [facility] CARDIAC ENZYMES CK MB null 0.5 - 3.6 05/16/2015 [facility] CARDIAC ENZYMES CK MB Index null 0.0 - 2.5 05/15/2015 [facility] CARDIAC ENZYMES BNP 10 pg/mL <=100 pg/mL 05/15/2015 [facility] CARDIAC ENZYMES Troponin-I null 0.00 - 0.40 05/15/2015 [facility] CARDIAC ENZYMES CK MB null 0.5 - 3.6 05/15/2015 [facility] CARDIAC ENZYMES Total CK 80 unit/L 12 - 191 05/15/2015 [facility] CHEM PANEL eGFR 60 mL/min/1.73m2 05/15/2015 Result Comment: The eGFR is calculated using the [...] from the National Kidney Disease Education Program (NKDEP) which additionally recommends that when the eGFR is used in patients with extremes of body mass index for purposes of drug dosing, the eGFR should be multiplied by the estimated BMI. [facility] CHEM PANEL B/C Ratio 9 6 - 25 05/15/2015 [facility] CHEM PANEL Globulin 3.7 g/dL 2.0 - 4.0 05/15/2015 [facility] CHEM PANEL A/G Ratio 1.1 0.7 - 1.6 05/15/2015 [facility] CHEM PANEL AST 33 unit/L 0 - 37 05/15/2015 [facility] CHEM PANEL Bili Total 0.8 mg/dL 0.2 - 1.3 05/15/2015 [facility] CHEM PANEL AGAP 9.1 meq/L 10.0 - 20.0 05/15/2015 [facility] CHEM PANEL ALT 46 unit/L 0 - 65 05/15/2015 [facility] CHEM PANEL Alk Phos 170 unit/L 39 - 136 05/15/2015 [facility] CHEM PANEL CO2 28 meq/L 24 - 32 05/15/2015 [facility] CHEM PANEL Creatinine Lvl 1.3 mg/dL 0.5 - 1.4 05/15/2015 [facility] CHEM PANEL Albumin Lvl 4.2 g/dL 3.5 - 5.0 05/15/2015 [facility] CHEM PANEL Glucose Lvl 80 mg/dL 70 - 99 05/15/2015 [facility] CHEM PANEL BUN 12 mg/dL 7 - 22 05/15/2015 [facility] CHEM PANEL Total Protein 7.9 g/dL 6.4 - 8.4 05/15/2015 [facility] CHEM PANEL Potassium Lvl 4.1 meq/L 3.5 - 5.1 05/15/2015 [facility] CHEM PANEL Sodium Lvl 140 meq/L 135 - 145 05/15/2015 [facility] CHEM PANEL Chloride Lvl 107 meq/L 95 - 109 05/15/2015 [facility] CHEM PANEL Calcium Lvl 8.8 mg/dL 8.5 - 10.5 05/15/2015 [facility] HEMATOLOGY Segs-Bands # 3.2 K/CMM 1.5 - 8.1 05/15/2015 [facility] HEMATOLOGY Basophils # 0.1 K/CMM 0.0 - 0.2 05/15/2015 [facility] HEMATOLOGY Eosinophils # 0.2 K/CMM 0.0 - 0.5 05/15/2015 [facility] HEMATOLOGY Monocytes # 0.6 K/CMM 0.0 - 0.8 05/15/2015 [facility] HEMATOLOGY Lymphocytes # 1.9 K/CMM 1.0 - 5.5 05/15/2015 [facility] HEMATOLOGY Basophils 0.9 % 0.0 - 1.0 05/15/2015 [facility] HEMATOLOGY Monocytes 10.3 % 2.0 - 12.0 05/15/2015 [facility] HEMATOLOGY Segs 53.4 % 45.0 - 75.0 05/15/2015 [facility] HEMATOLOGY Eosinophils 4.0 % 0.0 - 4.0 05/15/2015 [facility] HEMATOLOGY Lymphocytes 31.4 % 20.0 - 40.0 05/15/2015 [facility] HEMATOLOGY Hct 42.4 % 42.0 - 54.0 05/15/2015 [facility] HEMATOLOGY MCH 28.9 pg 27.0 - 31.0 05/15/2015 [facility] HEMATOLOGY MCHC 32.9 g/dL 32.0 - 36.0 05/15/2015 [facility] HEMATOLOGY MCV 87.9 fL 80.0 - 94.0 05/15/2015 [facility] HEMATOLOGY WBC 6.0 K/CMM 3.7 - 10.4 05/15/2015 [facility] HEMATOLOGY RBC 4.82 M/CMM 4.70 - 6.10 05/15/2015 [facility] HEMATOLOGY Hgb 13.9 g/dL 14.0 - 18.0 05/15/2015 [facility] HEMATOLOGY Platelet 259 K/CMM 133 - 450 05/15/2015 [facility] HEMATOLOGY RDW 13.3 % 11.5 - 14.5 05/15/2015 [facility] MPV 8.7 fL 7.4 - 10.4 05/15/2015 [facility] Chest wo contrast CT Chest wo contrast CT PROCEDURE: Chest wo contrast CT REASON FOR EXAM: coughing hx of stent placement 2 wks ago unable to get iv on pt so dr wanted w/o contrast CLINICAL INFORMATION Coughing COMPARISON: Chest x-ray 05/15/2015 CHEST without IV contrast: No technically enlarged mediastinal or axillary lymph nodes. Coronary artery calcifications. Hyperinflated lungs. No infiltrates, effusions or pneumothorax. Normal pulmonary vasculature. Patent airway. Scans through the upper abdomen demonstrates a right lobe liver mass measuring 3.3 cm. Post cholecystectomy. IMPRESSION: 1. Right lobe liver mass for which a MRI is recommended to evaluate. 2. Hyperinflated lungs. 3. Post cholecystectomy. 4. Coronary artery calcifications. DLP: 486 mGy-cm These findings are communicated to Dr. Pinon at 10:36 a.m. SL: 13 05/15/2015 - - Read by: Ritesh Alexis MD Dictated Date/time: 05/15/15 22:33 Electronically Signed by: Ritesh Alexis MD 05/15/15 22:39 FINAL REPORT [facility] Chest 2 views DX Chest 2 views DX EXAM: Chest 2 views DATE: May 15, 2015 06:28:01 PM INDICATION: Chest pain. Difficulty breathing. History of myocardial infarction. COMPARISON: None TECHNIQUE: PA and lateral chest radiographs. FINDINGS: Bilateral lungs are clear No pleural effusion or pneumothorax is identified. The cardiomediastinal contours are within normal limits. The skeleton is intact.. Right upper quadrant cholecystectomy clips are seen. IMPRESSION: No acute intrathoracic abnormality SL: 14 05/15/2015 - - Read by: Arely Maya MD Dictated Date/time: 05/15/15 19:20 Electronically Signed by: Arely Maya MD 05/15/15 19:21 FINAL REPORT [facility] CARDIAC ENZYMES Troponin-I 0.35 ng/mL 0.00 - 0.40 05/01/2015 [facility] ELECTROLYTES Chloride Lvl 108 meq/L 95 - 109 05/01/2015 [facility] ELECTROLYTES Potassium Lvl 3.7 meq/L 3.5 - 5.1 05/01/2015 [facility] ELECTROLYTES Calcium Lvl 7.8 mg/dL 8.5 - 10.5 05/01/2015 [facility] ELECTROLYTES Sodium Lvl 140 meq/L 135 - 145 05/01/2015 [facility] ELECTROLYTES eGFR 94 mL/min/1.73m2 05/01/2015 Result Comment: The eGFR is calculated using the [...] from the National Kidney Disease Education Program (NKDEP) which additionally recommends that when the eGFR is used in patients with extremes of body mass index for purposes of drug dosing, the eGFR should be multiplied by the estimated BMI. [facility] ELECTROLYTES AGAP 10.7 meq/L 10.0 - 20.0 05/01/2015 [facility] ELECTROLYTES CO2 25 meq/L 24 - 32 05/01/2015 [facility] ELECTROLYTES BUN 12 mg/dL 7 - 22 05/01/2015 [facility] ELECTROLYTES Creatinine Lvl 0.9 mg/dL 0.5 - 1.4 05/01/2015 [facility] ELECTROLYTES Glucose Lvl 86 mg/dL 70 - 99 05/01/2015 [facility] HEMATOLOGY Monocytes # 0.7 K/CMM 0.0 - 0.8 05/01/2015 [facility] HEMATOLOGY Eosinophils # 0.1 K/CMM 0.0 - 0.5 05/01/2015 [facility] HEMATOLOGY Lymphocytes 15.6 % 20.0 - 40.0 05/01/2015 [facility] HEMATOLOGY Monocytes 8.9 % 2.0 - 12.0 05/01/2015 [facility] [facility] HEMATOLOGY Segs 74.0 % 45.0 - 75.0 05/01/2015 [facility] HEMATOLOGY Eosinophils 1.0 % 0.0 - 4.0 05/01/2015 [facility] HEMATOLOGY Basophils 0.5 % 0.0 - 1.0 05/01/2015 [facility] HEMATOLOGY Lymphocytes # 1.3 K/CMM 1.0 - 5.5 05/01/2015 [facility] HEMATOLOGY Segs-Bands # 6.2 K/CMM 1.5 - 8.1 05/01/2015 [facility] HEMATOLOGY Platelet 201 K/CMM 133 - 450 05/01/2015 [facility] HEMATOLOGY RDW 13.1 % 11.5 - 14.5 05/01/2015 [facility] HEMATOLOGY RBC 4.33 M/CMM 4.70 - 6.10 05/01/2015 [facility] HEMATOLOGY Hgb 12.8 g/dL 14.0 - 18.0 05/01/2015 [facility] HEMATOLOGY MCV 86.9 fL 80.0 - 94.0 05/01/2015 [facility] HEMATOLOGY WBC 8.3 K/CMM 3.7 - 10.4 05/01/2015 [facility] HEMATOLOGY MCHC 34.1 g/dL 32.0 - 36.0 05/01/2015 [facility] HEMATOLOGY MCH 29.6 pg 27.0 - 31.0 05/01/2015 [facility] HEMATOLOGY Hct 37.7 % 42.0 - 54.0 05/01/2015 [facility] HEMATOLOGY MPV 8.8 fL 7.4 - 10.4 05/01/2015 [facility] LIPIDS VLDL 62 05/01/2015 [facility] LIPIDS LDL (Calculated) 87 mg/dL <=99 mg/dL 05/01/2015 [facility] LIPIDS HDL 28 mg/dL >=61 mg/dL 05/01/2015 [facility] LIPIDS Chol 177 mg/dL <=199 mg/dL 05/01/2015 [facility] LIPIDS Trig 310 mg/dL <=149 mg/dL 05/01/2015 [facility] LIPIDS CHD Risk 6.32 4.00 - 7.30 05/01/2015 [facility] SPECIAL CHEMISTRY Hgb A1C 5.5 % <=5.6 % 05/01/2015 [facility] BACTERIAL - SEROLOGY MRSA by PCR Negative (05/01/15 12:07 AM) 05/01/2015 [facility] CARDIAC ENZYMES Troponin-I 0.29 ng/mL 0.00 - 0.40 05/01/2015 [facility] CARDIAC ENZYMES Troponin-I 0.05 ng/mL 0.00 - 0.40 04/30/2015 [facility] CARDIAC ENZYMES Total CK 38 unit/L 12 - 191 04/30/2015 [facility] CARDIAC ENZYMES CK MB null 0.5 - 3.6 04/30/2015 [facility] CHEM PANEL Magnesium Lvl 1.9 mg/dL 1.8 - 2.4 04/30/2015 [facility] ELECTROLYTES AGAP 8.3 meq/L 10.0 - 20.0 04/30/2015 [facility] ELECTROLYTES CO2 31 meq/L 24 - 32 04/30/2015 [facility] ELECTROLYTES Glucose Lvl 95 mg/dL 70 - 99 04/30/2015 [facility] ELECTROLYTES BUN 15 mg/dL 7 - 22 04/30/2015 [facility] ELECTROLYTES eGFR 60 mL/min/1.73m2 04/30/2015 Result Comment: The eGFR is calculated using the [...] from the National Kidney Disease Education Program (NKDEP) which additionally recommends that when the eGFR is used in patients with extremes of body mass index for purposes of drug dosing, the eGFR should be multiplied by the estimated BMI. [facility] ELECTROLYTES Creatinine Lvl 1.3 mg/dL 0.5 - 1.4 04/30/2015 [facility] ELECTROLYTES Sodium Lvl 139 meq/L 135 - 145 04/30/2015 [facility] ELECTROLYTES Potassium Lvl 4.3 meq/L 3.5 - 5.1 04/30/2015 [facility] ELECTROLYTES Chloride Lvl 104 meq/L 95 - 109 04/30/2015 [facility] ELECTROLYTES Calcium Lvl 9.1 mg/dL 8.5 - 10.5 04/30/2015 [facility] HEMATOLOGY Eosinophils 2.4 % 0.0 - 4.0 04/30/2015 [facility] HEMATOLOGY Basophils 1.1 % 0.0 - 1.0 04/30/2015 [facility] HEMATOLOGY Monocytes 9.8 % 2.0 - 12.0 04/30/2015 [facility] HEMATOLOGY Eosinophils # 0.1 K/CMM 0.0 - 0.5 04/30/2015 [facility] HEMATOLOGY Lymphocytes # 1.6 K/CMM 1.0 - 5.5 04/30/2015 [facility] HEMATOLOGY Monocytes # 0.6 K/CMM 0.0 - 0.8 04/30/2015 [facility] HEMATOLOGY Segs-Bands # 3.5 K/CMM 1.5 - 8.1 04/30/2015 [facility] HEMATOLOGY Lymphocytes 27.1 % 20.0 - 40.0 04/30/2015 [facility] HEMATOLOGY Segs 59.6 % 45.0 - 75.0 04/30/2015 [facility] HEMATOLOGY Basophils # 0.1 K/CMM 0.0 - 0.2 04/30/2015 [facility] HEMATOLOGY RDW 13.1 % 11.5 - 14.5 04/30/2015 [facility] HEMATOLOGY MPV 8.7 fL 7.4 - 10.4 04/30/2015 [facility] HEMATOLOGY Platelet 239 K/CMM 133 - 450 04/30/2015 [facility] HEMATOLOGY MCV 88.0 fL 80.0 - 94.0 04/30/2015 [facility] HEMATOLOGY MCHC 33.7 g/dL 32.0 - 36.0 04/30/2015 [facility] MCH 29.6 pg 27.0 - 31.0 04/30/2015 [facility] HEMATOLOGY WBC 5.8 K/CMM 3.7 - 10.4 04/30/2015 [facility] HEMATOLOGY Hct 42.1 % 42.0 - 54.0 04/30/2015 [facility] HEMATOLOGY RBC 4.79 M/CMM 4.70 - 6.10 04/30/2015 [facility] HEMATOLOGY Hgb 14.2 g/dL 14.0 - 18.0 04/30/2015 [facility] HEMATOLOGY INR 0.95 0.85 - 1.17 04/30/2015 [facility] HEMATOLOGY PT 13.0 s 12.0 - 14.7 04/30/2015 [facility] HEMATOLOGY PTT 30.0 s 22.9 - 35.8 04/30/2015 [facility] Vital Signs Vital Sign Value Date Comments Source Temperature Oral (F) 98 F 01/31/2016 [facility] Systolic (mm Hg) 156 01/31/2016 [facility] Diastolic (mm Hg) 81 01/31/2016 [facility] Respitory Rate 20 01/31/2016 [facility] Heart Rate 51 01/31/2016 [facility] Systolic (mm Hg) 153 01/31/2016 [facility] Diastolic (mm Hg) 80 01/31/2016 [facility] Temperature Oral (F) 97.8 F 01/31/2016 [facility] Heart Rate 57 01/31/2016 [facility] Respitory Rate 20 01/31/2016 [facility] Respitory Rate 20 01/31/2016 [facility] Heart Rate 55 01/31/2016 [facility] Temperature Oral (F) 98.4 F 01/31/2016 [facility] Systolic (mm Hg) 118 01/31/2016 [facility] Diastolic (mm Hg) 61 01/31/2016 [facility] BMI Calculated 22.38 01/30/2016 [facility] Weight 61.001 01/30/2016 [facility] Height 165.1 cm 01/30/2016 [facility] Temperature Oral (F) 98 F 05/16/2015 [facility] Respitory Rate 20 05/16/2015 [facility] Systolic (mm Hg) 151 05/16/2015 [facility] Diastolic (mm Hg) 77 05/16/2015 [facility] Heart Rate 79 05/16/2015 [facility] Systolic (mm Hg) 150 05/16/2015 [facility] Diastolic (mm Hg) 82 05/16/2015 [facility] Heart Rate 80 05/16/2015 [facility] Respitory Rate 15 05/16/2015 [facility] Temperature Oral (F) 98.1 F 05/16/2015 [facility] Respitory Rate 18 05/16/2015 [facility] Systolic (mm Hg) 154 05/16/2015 [facility] Diastolic (mm Hg) 94 05/16/2015 [facility] Temperature Oral (F) 97.7 F 05/16/2015 [facility] Heart Rate 64 05/16/2015 [facility] Weight 65.909 05/15/2015 [facility] Height 165.1 cm 05/15/2015 [facility] BMI Calculated 24.18 05/15/2015 [facility] Systolic (mm Hg) 138 05/01/2015 [facility] Diastolic (mm Hg) 70 05/01/2015 [facility] Respitory Rate 18 05/01/2015 [facility] Temperature Oral (F) 98.0 F 05/01/2015 [facility] Systolic (mm Hg) 141 05/01/2015 [facility] Diastolic (mm Hg) 69 05/01/2015 [facility] Respitory Rate 18 05/01/2015 [facility] Systolic (mm Hg) 148 05/01/2015 [facility] Diastolic (mm Hg) 70 05/01/2015 [facility] Respitory Rate 18 05/01/2015 [facility] Temperature Oral (F) 98 F 05/01/2015 [facility] Temperature Oral (F) 97.9 F 05/01/2015 [facility] Height 165.1 cm 04/30/2015 [facility] Weight 67.273 04/30/2015 [facility] BMI Calculated 24.68 04/30/2015 [facility] Encounters Location Location Details Encounter Type Encounter Number Reason For Visit Attending Provider ADM Date DC Date Status Source [facility] Inpatient [id number] Henrry Keyshawnoble 04/30/2015 05/01/2015 [facility] [id number] Qamar Fabianare 05/15/2015 05/16/2015 [facility] [id number] Nanisera Piper 10/16/2015 10/17/2015 [facility] Inpatient [id number] Jose Vargas 01/29/2016 01/31/2016 [facility] [id number] Sergo Harrison 2018 03/09/2018 [facility] Procedures Procedure Code Date Perfomer Comments Source Stent placement<sup>1</sup> [id number] RCA x 2 [facility] Stent placement<sup>1</sup> [id number] RCA x 2 [facility] Stent placement<sup>1</sup> [id number] RCA x 2 [facility]
--- OUTSIDE RECORDS SUMMARY | 2018-10-26 10:58 | XMS REPORT | Summary of Care ---
Author Author JAQUI Bernard, TREVOR Linton Unknown Address Unknown Phone Unavailable Care Team Providers Care Inspector Packer Name Role Phone JASIEL Bernard, NAHED Unavailable Unavailable ARIADNE Bernard, BARBARA Unavailable Unavailable JAQUI Bernard, TREVOR Unavailable Unavailable JASIEL GREER VA, NAHED Umanzor Unavailable Unavailable ELLEN Bernard, OFELIA Granados Unavailable Unavailable Unavailable Functional Status Name Dates Details Functional status health issues are not documented Status: Name Dates Details Cognitive status health issues are not documented Status: Problems Name Dates Details Tingling (782.0, R20.2) Status: Active Fluttering sensation of heart (785.1, R00.2) Status: Active Left shoulder pain (719.41, M25.512) Status: Active Adhesive bursitis of left shoulder (726.0, M75.02) Status: Active Laceration of tendon of left rotator cuff (840.4, S46.022A) Status: Active Abnormal EKG (794.31, R94.31) Status: Active Dizziness (780.4, R42) Status: Active Hyperlipidemia (272.4, E78.5) Status: Active Dysphagia (787.20, R13.10) Status: Active GERD without esophagitis (530.81, K21.9) Status: Active Dysfunction of Eustachian tube, unspecified laterality (381.81, H69.80) Status: Active Irritable bowel syndrome (564.1, K58.9) Status: Active Dysphonia (784.42, R49.0) Status: Active Depression (311, F32.9) Status: Active Fatigue (780.79, R53.83) Status: Active Arteriosclerosis of coronary artery (414.00, I25.10) Status: Active Essential (primary) hypertension (401.9, I10) Status: Active Limb pain (729.5, M79.609) Status: Active Dysthymic disorder (300.4, F34.1) Status: Active Colon polyp (211.3, K63.5) Status: Active Oral thrush (112.0, B37.0) Status: Active Postnasal drip (784.91, R09.82) Status: Active Ulcer of mouth (528.9, K12.1) Status: Active Allergic rhinitis (477.9, J30.9) Status: Active Medications Name Dates Details Omeprazole 40 MG Oral Capsule Delayed Release TAKE 1 CAPSULE TWICE DAILY Active Atorvastatin Calcium 20 MG Oral Tablet TAKE 1 TABLET AT BEDTIME * Quantity: 90 Refills: 1 BARBARA RON M.D. * Start : 13-Feb-2016 Active Aspirin 81 MG TABS TAKE 1 TABLET DAILY. * Refills: 0 Active Triazolam 0.25 MG Oral Tablet TAKE 1 TABLET AT BEDTIME. * Refills: 0 Active Clopidogrel Bisulfate 75 MG Oral Tablet TAKE ONE TABLET BY MOUTH ONCE DAILY * Quantity: 90 Refills: 2 BARBARA RON M.D. * Start : 29-Jun-2017 Active Metoprolol Tartrate 25 MG Oral Tablet TAKE 1 TABLET TWICE DAILY. * Quantity: 180 Refills: 0 BARBARA RON M.D. Active BuPROPion HCl ER (XL) 150 MG Oral Tablet Extended Release 24 Hour TAKE 1 TABLET BY MOUTH ONCE DAILY DIRECTED * Quantity: 30 Refills: 0 NAHED WEATHERS M.D. * Start : 20-Oct-2016 Active Fluticasone Propionate 50 MCG/ACT Nasal Suspension USE 1 SPRAY IN EACH NOSTRIL TWICE DAILY. * Quantity: 1 Refills: 6 TREVOR NAILS M.D. * Start : 29-Jul-2017 Active 9.9 ML Bottle Allergies and Adverse Reactions Name Dates Details No Known Drug Allergies (Allergy) Status: Active Past Medical History Name Dates Details Essential (primary) hypertension (401.9, I10) Status: Active GERD without esophagitis (530.81, K21.9) Status: Active History of acute sinusitis (V12.69, Z87.09) Status: Resolved History of chest pain (V13.89, Z87.898) Status: Resolved History of esophageal reflux (V12.79, Z87.19) Status: Resolved History of Fluctuating blood pressure (796.4, I99.8) Status: Resolved History of Myalgia And Myositis Of Right Shoulder Region (729.1) Status: Resolved History of myocardial infarction (412, I25.2) Status: Resolved History of myocardial infarction (412, I25.2) Status: Resolved Status post left heart catheterization (LHC) (V45.89, Z98.890) Status: Resolved Procedures Procedure Dates Details CT Neck soft tissue w contrast 70685 Date: 29-Jul-2017 History of Tonsillectomy With Adenoidectomy Completed History of Cholecystectomy Completed History of Shoulder Surgery Completed History of Arthroscopy Knee Left Completed History of Surgery Vas Deferens Vasectomy Completed History of Hand Surgery Completed History of Cath Placement Of Stent 2 Completed Immunization Name Dates Details Immunizations not documented Family History Name Dates Details Family history of Prostate Cancer (V16.42) Status: Active Family history of Malignant Mesothelioma Of The Lung (V16.1) Status: Active Family history of hypertension (V17.49, Z82.49) Status: Active Name Dates Details Family history of Hypertension (V17.49) Status: Active Social History Name Dates Details - Status: Name Dates Details Never smoker Vital Signs Date Test Result Details [id number] BP Systolic 138 mm[Hg] Status: Comments: Location: LUE; Position: Sitting BP Diastolic 74 mm[Hg] Status: Comments: Location: LUE; Position: Sitting Height 65 in Status: Weight 129.375 lb Status: Body Mass Index Calculated 21.53 kg/m2 Status: Body Surface Area Calculated 1.64 m2 Status: Heart Rate 58 /min Status: Respiration Rate 16 /min Status: Results Date Description Value Details Results not documented Plan of Care Name Dates Details Planned Observations Planned Goals not documented Planned Encounters Appointment; BARBARA RON M.D. On: 18-Jan-2018 14:40 Interventions Provided Medication Changes* Fluticasone Propionate 50 MCG/ACT Nasal Suspension - Start Labs/Procedures/Imaging* CT Neck soft tissue w contrast 18817; To Be Done: 29 Jul 2017 Plan* 62 yo M with h/o HTN, now presenting with continued lower lip pain; no lesions or masses or ulcers * - no change with antifungal or antiherpetic treatment; no change with steroids * - continue lidocaine mouthwash for pain control; helps temporarily * - CT Neck w/ contrast to evaluate bone of jaw and pathway of inferior alveolar nerve * - biopsy possibly but nothing obvious exists to biopsy; will consider Rheum or Neuro consult depending on results * - RTC after CT Instructions Name Dates Details Instructions not documented Encounters Appointment; BARBARA RON M.D. Encounter Diagnosis: Problem not documented On: 18-Aug-2015 8:40 Appointment; BARBARA RON M.D. Encounter Diagnosis: Problem not documented On: 15-Oct-2015 9:00 Appointment; NAHED WEATHERS M.D. Encounter Diagnosis: Problem not documented On: 16-Oct-2015 10:30 Appointment; GULSHAN PIKE M.D. Encounter Diagnosis: Problem not documented On: 16-Oct-2015 14:00 Appointment; [facility] Encounter Diagnosis: Problem not documented On: 20-Oct-2015 8:00 Appointment; [facility] ECHO Encounter Diagnosis: Problem not documented On: 21-Oct-2015 14:00 Appointment; [facility] ECHO Encounter Diagnosis: Problem not documented On: 21-Oct-2015 15:00 Appointment; [facility] HOLTER Encounter Diagnosis: Problem not documented On: 21-Oct-2015 16:00 Appointment; BARBARA RON M.D. Encounter Diagnosis: Problem not documented On: 29-Oct-2015 8:40 Appointment; BARBARA RON M.D. Encounter Diagnosis: Problem not documented On: 16-Feb-2016 11:40 Appointment; OFELIA AYALA M.D. Encounter Diagnosis: Problem not documented On: 27-Feb-2016 14:30 Appointment; OFELIA AYALA M.D. Encounter Diagnosis: Problem not documented On: 29-Mar-2016 15:15 Appointment; NAHED WEATHERS M.D. Encounter Diagnosis: Problem not documented On: 31-Mar-2016 15:45 Appointment; [facility], AUDIOLOGY- Encounter Diagnosis: Problem not documented On: 26-May-2016 15:30 Appointment; OFELIA AYALA M.D. Encounter Diagnosis: Problem not documented On: 27-May-2016 15:15 Appointment; NAHED WEATHERS M.D. Encounter Diagnosis: Problem not documented On: 22-Jul-2016 12:45 Appointment; NAHED WEATHERS M.D. Encounter Diagnosis: Problem not documented On: 04-Aug-2016 13:15 Appointment; BARBARA RON M.D. Encounter Diagnosis: Problem not documented On: 04-Aug-2016 14:00 Appointment; [address] Encounter Diagnosis: Problem not documented On: 13-Aug-2016 8:00 Appointment; BARBARA RON M.D. Encounter Diagnosis: Problem not documented On: 16-Aug-2016 10:00 Appointment; NAHED WEATHERS M.D. Encounter Diagnosis: Problem not documented On: 03-Dec-2016 9:30 Appointment; GREY CASILLAS M.D. Encounter Diagnosis: Problem not documented On: 13-Dec-2016 15:00 Appointment; BARBARA RON M.D. Encounter Diagnosis: Problem not documented On: 19-Jan-2017 14:40 Appointment; NAHED WEATHERS M.D. Encounter Diagnosis: Problem not documented On: 31-Jan-2017 14:00 Appointment; DARLING LORENZO M.D. Encounter Diagnosis: Problem not documented On: 14-Feb-2017 13:00 Appointment; DARLING LORENZO M.D. Encounter Diagnosis: Problem not documented On: 07-Mar-2017 15:15 Appointment; TREVOR NAILS M.D. Encounter Diagnosis: Problem not documented On: 09-Mar-2017 8:15 Appointment; TREVOR NAILS M.D. Encounter Diagnosis: Problem not documented On: 18-Mar-2017 15:30 Appointment; TREVOR NAILS M.D. Encounter Diagnosis: Problem not documented On: 29-Jul-2017 11:30
--- OUTSIDE RECORDS SUMMARY | 2018-10-26 10:58 | XMS REPORT ---
Author Author [facility] Address Unknown Phone Unavailable Care Team Providers Care Door Assembler Name Role Phone SURAJ GLYNN Unavailable Unavailable Problems This patient has no known problems. Allergies, Adverse Reactions, Alerts This patient has no known allergies or adverse reactions. Medications This patient has no known medications. Results Test Description Test Time Test Comments Text Results Atomic Results Result Comments MRI KNEE LEFT WO 2018-08-10 11:44:00 [facility] [address] [address] Patient Name: BETH MARTINEZ MR #: [id number] : 1955 Age/Sex: 63/M Req #: [id number] [facility] Physician: Ordered by: SURAJ GLYNN MD Report #: [id number] Location: MRI Room/Bed: Procedure: [id number] MRI/MRI KNEE LEFT WO Exam Date: 08/07/18 Exam Time: 0900 REPORT STATUS: Signed TECHNIQUE: Magnetic resonance imaging of the LEFT KNEE was performed WITHOUT injected contrast. HISTORY: Left knee pain COMPARISON: None available. FINDINGS: LIGAMENTS AND TENDONS: ACL: Intact PCL: Intact Collateral ligaments: Intact Iliotibial band: Unremarkable Popliteal tendon: Intact Extensor mechanism: Intact JOINT: Menisci: Medial: Probable prior partial meniscectomy Lateral: Intact Articular Cartilage: Medial Compartment: Focal full-thickness cartilage loss involving the weightbearing femoral condyle measuring approximately 5 by 1 cm with subchondral edema Lateral Compartment: No focal defect. Patellofemoral Compartment: No focal defect. Joint Fluid: Trace joint effusion. BONE: No focal or infiltrative bone marrow replacing abnormality. No acute fracture. SOFT TISSUES: Otherwise, unremarkable. IMPRESSION: Medial meniscus probable partial meniscect tio (rather than horizontal tear) to the body and posterior horn. Medial femoral condyle full-thickness cartilage defect with subchondral edema. Signed by: Dr. Saleem Ambrose M.D. on 08/10/2018 11:48 AM Dictated By: SALEEM AMBROSE MD [id number] Transcribed By: KIKI on 08/10/18 1148 COPY TO: SURAJ GLYNN MD
[2018-10-26 14:20] VITALS: BP 123/80
--- NOTE | 2018-10-26 21:48 | Operative Report ---
DATE OF PROCEDURE: 10/26/2018 SURGEON: Yoel Glez MD PROCEDURE: EGD with esophageal dilatation and biopsies. INDICATION FOR PROCEDURE: Acid reflux, dysphagia. MEDICATION: The patient was done under MAC, please see anesthesiologist's note. DESCRIPTION OF PROCEDURE: With the patient in left lateral decubitus position, the flexible fiberoptic Olympus gastroscope was introduced into the esophagus under direct visualization without any difficulty. There was some patchy erythema noted in distal esophagus. A minute tongue of velvety red mucosa was noted to extend proximally from the GE junction that was biopsied to rule out Garrison's. Esophagus was dilated to size 52-Serbian Miller. The scope was then advanced with ease into the stomach traversing a small sliding hiatal hernia. Mucosa overlying the antrum and the body revealed some patchy erythema and [id number] edema and biopsies were obtained and sent to stain for H pylori. The pylorus was of normal contour and shape. It was intubated with ease and the scope was advanced all the way to the second portion of the duodenum. Biopsies were obtained from the proximal second portion and the duodenal bulb to rule out sprue. The scope was then withdrawn back into the stomach and retroflexed. The mucosa overlying the fundus and the cardia appeared to be within normal limits. The scope was then straightened out. It was subsequently withdrawn. The patient tolerated the procedure well. IMPRESSION: 1. Distal esophagitis, mild. 2. 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 Biopsies were obtained. Esophagus was dilated to size 52-Serbian Miller. 3. Small sliding hiatal hernia. 4. Gastritis, biopsied. Biopsies sent to stain for Helicobacter pylori. 5. Rule out sprue. PLAN: Follow up histology. Initiate Protonix 40 mg one p.o. a.c. b.i.d. Yoel Glez MD [facility] [place]/CIRILO /[id number] cc: Nani Piper MD
== END | disposition home or self-care (01) ==
LOC: OR 10:53
PROVIDERS: ATTEND Internal Medicine Gastroenterology
DX: K22.70 Barrett's esophagus without dysplasia (principal); K29.60 Other gastritis without bleeding; K20.8 Other esophagitis; K21.9 Gastro-esophageal reflux disease without esophagitis; K44.9 Diaphragmatic hernia without obstruction or gangrene; K59.00 Constipation, unspecified; K64.0 First degree hemorrhoids; K64.4 Residual hemorrhoidal skin tags; G89.29 Other chronic pain; I25.10 Atherosclerotic heart disease of native coronary artery without angina pectoris; I10 Essential (primary) hypertension; I25.2 Old myocardial infarction; R00.1 Bradycardia, unspecified; F41.9 Anxiety disorder, unspecified; F32.9 Major depressive disorder, single episode, unspecified; Z86.010 Personal history of colon polyps; Z01.810 Encounter for preprocedural cardiovascular examination; Z79.82 Long term (current) use of aspirin; Z79.02 Long term (current) use of antithrombotics/antiplatelets; Z95.5 Presence of coronary angioplasty implant and graft
CPT/HCPCS: 43239; 43450; 93005; J2250; J2704

== ENCOUNTER → 2018-12-27 | Day surgery (SDC) | payer OTHER ==
[~2018-12-27] MED LIST changes: +HYOSCYAMINE SULFATE 0.5 MG/ML INJ ONE
--- OUTSIDE RECORDS SUMMARY | 2018-12-27 11:42 | XMS REPORT | Continuity of Care Document ---
Author Author [facility] Interface Address Unknown Phone Unavailable Problems Problem Status Onset Date Classification Date Reported Comments Source Medications Medication Details Route Status Patient Instructions Ordering Provider Order Date Source Dicyclomine Hcl 20 Mg Tablet, 20 Mg Oral Three Times A Day Active 10/25/2018 [facility] Prasugrel Hcl (Effient) 10 Mg Tablet, 10 Mg Oral Daily Active 10/25/2018 [facility] Promethazine Hcl 25 Mg Tablet, 25 Mg Oral As Needed Active 10/25/2018 [facility] Sucralfate 1 Gm Tablet, 1 Gm Oral Four Times Daily Active 10/25/2018 [facility] Triazolam 0.25 Mg Tablet, 0.25 Mg Oral As Needed Active 10/25/2018 [facility] Lact Cmb2/S.thermophl/Bif Cmb1 (Vsl#3 Capsule) 1 Each Capsule, Oral Twice A Day Active 02/12/2016 [facility] Amlodipine Besylate/Benazepril (Lotrel 5-20 Mg Capsule) 1 Each Capsule, 5 - 20 Mg Oral Daily Active 05/16/2012 [facility] Aspirin (Ecotrin) 325 Mg Tablet., 325 Mg Oral Daily Active 05/16/2012 [facility] Rosuvastatin Calcium (Crestor) 40 Mg Tablet, 40 Mg Oral Daily Active 05/16/2012 [facility] Aspirin (Aspir 81) 81 Mg Tablet. Daily Active [facility] Atorvastatin Calcium 40 Mg Tablet Daily Active [facility] Clopidogrel Bisulfate (Clopidogrel) 75 Mg Tablet Daily Active [facility] Gabapentin 300 Mg Capsule Twice A Day Active [facility] Metoprolol Tartrate 25 Mg Tablet Daily Active [facility] Omeprazole 40 Mg Capsule. Twice A Day Active [facility] Allergies, Adverse Reactions, Alerts Substance Category Reaction Severity Reaction type Status Date Reported Comments Source Immunizations Immunization Date Given Site Status Last Updated Comments Source Results Order Name Results Value Reference Range Date Interpretation Comments Source Vital Signs Vital Sign Value Date Comments Source Encounters Location Location Details Encounter Type Encounter Number Reason For Visit Attending Provider ADM Date DC Date Status Source Registered Clinic [id number] SURAJ GLYNN MD 08/07/2018 [facility] Discharged Recurring [id number] SURAJ GLYNN MD 10/23/2018 11/05/2018 [facility] Registered [facility] [id number] SHIRLEY PEREZ MD 10/26/2018 [facility] Procedures Procedure Code Date Perfomer Comments Source EGD with biopsy [id number] 10/26/2018 [facility] MRI jnt of lwr extre w/o dye [id number] 08/07/2018 [facility]
[2018-12-27 12:28] LABS: BASOPHILS # (AUTO) 0.1 (0.0-0.1); BASOPHILS % 1.2 % (0.0-1.0); EOSINOPHILS # (AUTO) 0.2 (0.0-0.4); HEMATOCRIT 43.9 % (38.2-49.6); HEMOGLOBIN 14.9 g/dL (14.0-18.0); LYMPHOCYTES # (AUTO) 1.7 (1.0-3.2); LYMPHOCYTES % 25.9 % (18.0-39.1); MEAN CORPUSCULAR HEMOGLOBIN 29.6 pg (28-32); MEAN CORPUSCULAR HGB CONC 33.9 g/dL (31-35); MEAN CORPUSCULAR VOLUME 87.1 fL (81-99); MONOCYTES # (AUTO) 0.6 (0.2-0.8); MONOCYTES % 8.7 % (4.4-11.3); PLATELET COUNT 284 x10e3/uL (140-360); RED BLOOD COUNT 5.04 x10e6/uL (4.3-5.7); RED CELL DISTRIBUTION WIDTH 12.2 % (11.7-14.4)
[2018-12-27 14:31] LABS: WBC,FECAL (FECAL LACTOFERRIN) NEGATIVE (NEGATIVE)
--- NOTE | 2018-12-27 15:10 | Operative Report ---
DATE OF PROCEDURE: 12/27/2018 SURGEON: Yoel Glez MD PROCEDURE: Colonoscopy with polypectomy and biopsies. INDICATIONS FOR COLONOSCOPY: Surveillance colonoscopy, personal history of colon polyps, alternating bouts of constipation and diarrhea. MEDICATIONS: The patient was done under MAC, please see anesthesiologist's note. PROCEDURE IN DETAIL: With the patient in left lateral decubitus position, flexible fiberoptic Olympus colonoscope was inserted into the rectum with ease and advanced all the way to the cecum. Mucosa overlying the cecum appeared to be within normal limits. The ileocecal valve was intubated and the scope was advanced into the terminal ileum. Biopsies were obtained. The scope was then withdrawn back into the colon. It was then withdrawn slowly. Mucosa overlying the ascending and the transverse grossly appeared to be within normal limits. Some patchy mild inflammatory changes were noted in the descending sigmoid and rectum and multiple random biopsies were obtained. Diverticulosis was noted. Some mild diverticular disease was noted in the sigmoid colon. One polyp was hot biopsied from the rectum. Mucosa overlying the rectum also revealed similar inflammatory findings as in the descending and sigmoid and biopsies were obtained. The scope was then retroflexed into the distal rectum and small internal hemorrhoids were noted, none of which was actively bleeding. The scope was then straightened out, it was subsequently withdrawn. The patient tolerated the procedure well. IMPRESSION: 1. Mild patchy colitis, left colon. 2. Diverticulosis. 3. Rectal polyp, hot biopsied. 4. Proctitis, mild. 5. Internal hemorrhoids, none actively bleeding. PLAN: Follow up histology. Follow up stool studies. Initiate Bentyl 10 mg one p.o. t.i.d. VSL#3 one p.o. daily. Flagyl 500 mg one p.o. q.i.d. x14 days. Yoel Glez MD [facility] [place]/MODL /[id number] cc: Nani Piper MD
[2018-12-27 15:14] LABS: C DIFFICILE TOXIN A&B AMP PROB NEGATIVE (NEGATIVE)
[2018-12-27 15:15] VITALS: BP 142/91
== END | disposition home or self-care (01) ==
LOC: OR 11:40
PROVIDERS: ATTEND Internal Medicine Gastroenterology
DX: K51.50 Left sided colitis without complications (principal); K62.1 Rectal polyp; K57.30 Diverticulosis of large intestine without perforation or abscess without bleeding; K62.89 Other specified diseases of anus and rectum; K59.00 Constipation, unspecified; K64.8 Other hemorrhoids; K20.8 Other esophagitis; K22.70 Barrett's esophagus without dysplasia; K44.9 Diaphragmatic hernia without obstruction or gangrene; K21.9 Gastro-esophageal reflux disease without esophagitis; R63.4 Abnormal weight loss; I25.10 Atherosclerotic heart disease of native coronary artery without angina pectoris; I10 Essential (primary) hypertension; E78.5 Hyperlipidemia, unspecified; R00.1 Bradycardia, unspecified; H91.90 Unspecified hearing loss, unspecified ear; F32.9 Major depressive disorder, single episode, unspecified; F41.9 Anxiety disorder, unspecified; Z79.02 Long term (current) use of antithrombotics/antiplatelets; Z79.82 Long term (current) use of aspirin; Z95.5 Presence of coronary angioplasty implant and graft
CPT/HCPCS: 36415; 45380; 45384; 83630; 83993; 85025; 85651; 86140; 86256; 86671; 87045; 87177; 87328; 87493; J1980; J2250; J2704; 45378

== ENCOUNTER 2019-07-16 11:09 | Emergency (ER) | payer OTHER ==
[~2019-07-16] VITALS: Ht 165.1 cm; Wt 65.8 kg
[~2019-07-16 11:09] MED LIST changes: -FENTANYL CITRATE/PF 100MCG/2 ML INJ ONE; -HYOSCYAMINE SULFATE 0.5 MG/ML INJ ONE; -MIDAZOLAM HCL 2 MG/2 ML VIAL ONE; -PROPOFOL IV EMULSION 10 MG/ML 50 ML VIAL ONE
--- OUTSIDE RECORDS SUMMARY | 2019-07-16 11:13 | XMS REPORT | Summary of Care ---
Author Author Lizeth Bhakta R.N. Organization Unknown Address [facility] Phone Unavailable Care Team Providers Care Drupal Architect Name Role Phone Lizeth Bhakta R.N. Unavailable Unavailable MATT Bernard, HENRRY Unavailable Unavailable JASIEL GREER, NAHED Umanzor Unavailable Unavailable ELLEN Bernard, OFELIA Unavailable Unavailable JASIEL Bernard, NAHED Unavailable Unavailable JAMIE GREER, OFELIA Choi Unavailable Unavailable AVA GREER, SAM Ardon Unavailable Unavailable Matt GREER, Henrry Unavailable Unavailable Unavailable Unavailable Functional Status Name Dates Details Functional status health issues are not documented Status: Name Dates Details Cognitive status health issues are not documented Status: Problems Name Dates Details Adhesive bursitis of left shoulder (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, 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) Status: Active Laceration of tendon of left rotator cuff (840.4, S46.022A) Status: Active Irritable bowel syndrome (564.1, K58.9) Status: Active Colon polyp (211.3, K63.5) Status: Active Allergic rhinitis (477.9, J30.9) Status: Active Erectile dysfunction (607.84, N52.9) Status: Active Depression (311, F32.9) Status: Active Dysphonia (784.42, R49.0) Status: Active GERD without esophagitis (530.81, K21.9) Status: Active Dysphagia (787.20, R13.10) Status: Active Burning mouth syndrome (529.6, K14.6) Status: Active Arteriosclerosis of coronary artery (414.00, I25.10) Status: Active Essential (primary) hypertension (401.9, I10) Status: Active Hyperlipidemia (272.4, E78.5) Status: Active Medications Name Dates Details Aspirin 81 MG TABS TAKE 1 TABLET DAILY. Active Triazolam 0.25 MG Oral Tablet TAKE 1 TABLET AT BEDTIME. * Refills: 0 Active Clopidogrel Bisulfate 75 MG Oral Tablet TAKE ONE TABLET BY MOUTH ONCE DAILY * Quantity: 30 Refills: 0 MATT Bernard, HENRRY * Start : 31-Mar-2016 Active Metoprolol Tartrate 25 MG Oral Tablet TAKE 1 TABLET BY MOUTH TWICE DAILY * Quantity: 180 Refills: 3 MATT Barlow.Armando., HENRRY * Start : 31-May-2018 Active Atorvastatin Calcium 10 MG Oral Tablet TAKE 1 TABLET BEDTIME * Quantity: 90 Refills: 1 MATT Bernard, HENRRY * Start : 15-Mar-2018 Active Protonix 40 MG Oral Tablet Delayed Release TAKE 1 TABLET DAILY. 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 History of Burning mouth syndrome (529.6, K14.6) Status: Resolved History of candidiasis of mouth (V12.09, Z86.19) Status: Resolved History of chest pain (V13.89, Z87.898) Status: Resolved History of dizziness (V13.89, Z87.898) Status: Resolved History of dry mouth (V12.79, Z87.19) Status: Resolved History of dysthymia (V11.8, Z86.59) Status: Resolved History of esophageal reflux (V12.79, Z87.19) Status: Resolved History of eustachian tube dysfunction (V12.49, Z86.69) Status: Resolved History of fatigue (V13.89, Z87.898) Status: Resolved History of Fluctuating blood pressure (796.4, I99.8) Status: Resolved History of Fluttering sensation of heart (785.1, R00.2) Status: Resolved History of Left shoulder pain (719.41, M25.512) Status: Resolved History of Limb pain (729.5, M79.609) Status: Resolved History of Myalgia And Myositis Of Right Shoulder Region (729.1) Status: Resolved History of myocardial infarction (412, I25.2) Status: Resolved History of myocardial infarction (412, I25.2) Status: Resolved History of postnasal drip (V12.69, Z87.09) Status: Resolved History of Tingling (782.0, R20.2) Status: Resolved History of Ulcer of mouth (528.9, K12.1) Status: Resolved Status post left heart catheterization (LHC) (V45.89, Z98.890) Status: Resolved Procedures Procedure Dates Details History of Tonsillectomy With Adenoidectomy Completed History of Cholecystectomy Completed History of Shoulder Surgery Completed History of Arthroscopy Knee Left Completed History of Surgery Vas Deferens Vasectomy Completed History of Hand Surgery Completed History of Cath Placement Of Stent 2 Completed Immunization Name Dates Details Immunizations not documented Family History Name Dates Details Family history of arthritis (V17.7, Z82.61) Status: Active Name Dates Details Family history of Prostate Cancer (V16.42) Status: Active Family history of Malignant Mesothelioma Of The Lung (V16.1) Status: Active Family history of hypertension (V17.49, Z82.49) Status: Active Name Dates Details Family history of Hypertension (V17.49) Status: Active Social History Name Dates Details - Status: Name Dates Details Never smoker Vital Signs Date Test Result Details [id number] BP Systolic 145 mm[Hg] Status: Comments: Location: LUE; Position: Sitting BP Diastolic 64 mm[Hg] Status: Comments: Location: LUE; Position: Sitting Height 65 in Status: Weight 132.5 lb Status: Body Mass Index Calculated 22.05 kg/m2 Status: Body Surface Area Calculated 1.66 m2 Status: Heart Rate 50 /min Status: Respiration Rate 16 /min Status: Results Date Description Value Details Results not documented Plan of Care Name Dates Details Planned Observations Planned Goals not documented Interventions Provided Discussion/Summary* Guideline Used: * Other: Prescription refill request. * Ernst MS * Patient calling to request refills on Clopidogrel sent to pharmacy in [place], [place]. Review of chart shows a message has been sent to clinic staff. * No new signs or symptoms from patient at this time. * Recommended Disposition: Call back with any further questions or concerns. * Intended Caller Action: * Other: Prescription refill request. * Additional Information: * Patient verbalizes understanding of the call and agrees to disposition at this time. Instructions Name Dates Details Instructions not documented Encounters Appointment; DARLING LORENZO M.D. Encounter Diagnosis: Problem not documented On: 07-Mar-2017 15:15 Appointment; TREVOR NAILS M.D. Encounter Diagnosis: Problem not documented On: 09-Mar-2017 8:15 Appointment; TREVOR NALIS M.D. Encounter Diagnosis: Problem not documented On: 18-Mar-2017 15:30 Appointment; TREVOR NAILS M.D. Encounter Diagnosis: Problem not documented On: 29-Jul-2017 11:30 Appointment; HENRRY RON M.D. Encounter Diagnosis: Problem not documented On: 18-Jan-2018 14:40 Appointment; TREVOR NAILS M.D. Encounter Diagnosis: Problem not documented On: 03-Mar-2018 13:30 Appointment; CHERI SEWELL M.D. Encounter Diagnosis: Problem not documented On: 15-Mar-2018 13:00 Appointment; OFELIA AYALA M.D. Encounter Diagnosis: Problem not documented On: 23-Mar-2018 15:45 Appointment; TREVOR NAILS M.D. Encounter Diagnosis: Problem not documented On: 31-Mar-2018 14:45 Appointment; OFELIA AYALA M.D. Encounter Diagnosis: Problem not documented On: 27-Apr-2018 15:45 Appointment; OFELIA AYALA M.D. Encounter Diagnosis: Problem not documented On: 15-Jun-2018 15:45 Appointment; NAHED WEATHERS M.D. Encounter Diagnosis: Problem not documented On: 21-Jun-2018 10:15 Appointment; OFELIA AYALA M.D. Encounter Diagnosis: Problem not documented On: 29-Sep-2018 14:15 Appointment; MARLIN SHOEMAKER NP Encounter Diagnosis: Problem not documented On: 12-Oct-2018 15:45 Appointment; HENRRY RON M.D. Encounter Diagnosis: Problem not documented On: 17-Jan-2019 8:20 Appointment; HENRRY RON M.D. Encounter Diagnosis: Problem not documented On: 29-Jan-2019 14:20
[2019-07-16] MEDS ORDERED: HYDRALAZINE HCL 20 MG/ML VIAL IV STA (11:15)
[2019-07-16] MEDS ORDERED: HYDRALAZINE HCL 20 MG/ML VIAL ONE (11:29)
--- NOTE | 2019-07-16 11:50 | Diagnostic Imaging Report ---
Chest, portable AP view History: Hypertension and headache Comparison: No comparisons available for review IMPRESSION: The heart is within normal limits size. The mediastinal and hilar contours are unremarkable. There is minimal left basilar atelectasis. No focal consolidation, pleural effusion, or pneumothorax.. Signed by: Milton Marquez MD on 07/16/2019 11:47 AM
[2019-07-16 11:51] LABS: BASOPHILS # (AUTO) 0.1 (0.0-0.1); BASOPHILS % 0.9 % (0.0-1.0); EOSINOPHILS # (AUTO) 0.1 (0.0-0.4); HEMATOCRIT 40.3 % (38.2-49.6); HEMOGLOBIN 13.3 g/dL (14.0-18.0); LYMPHOCYTES # (AUTO) 1.7 (1.0-3.2); LYMPHOCYTES % 28.8 % (18.0-39.1); MEAN CORPUSCULAR HEMOGLOBIN 29.6 pg (28-32); MEAN CORPUSCULAR VOLUME 89.6 fL (81-99); MONOCYTES # (AUTO) 0.5 (0.2-0.8); MONOCYTES % 7.8 % (4.4-11.3); NEUTROPHILS # (AUTO) 3.5 (2.1-6.9); NEUTROPHILS % 60.3 % (38.7-80.0); PLATELET COUNT 228 x10e3/uL (140-360); RED CELL DISTRIBUTION WIDTH 11.9 % (11.7-14.4)
[2019-07-16 12:01] LABS: BILIRUBIN,URINE NEGATIVE (NEGATIVE); CLARITY,URINE CLEAR (CLEAR); COLOR,URINE YELLOW (YELLOW); KETONES,URINE NEGATIVE (NEGATIVE); LEUKOCYTE ESTERASE ,URINE NEGATIVE (NEGATIVE); NITRITE,URINE NEGATIVE (NEGATIVE); PROTEIN,URINE DIPSTICK NEGATIVE (NEGATIVE); URINE UROBILINOGEN 0.2 mg/dL (0.2 - 1)
--- NOTE | 2019-07-16 12:01 | Diagnostic Imaging Report ---
CT BRAIN WO HISTORY: Headache COMPARISON: None. Technique: Noncontrast axial scans were obtained from skull base to the vertex. Coronal and sagittal reconstructions obtained from the axial data. One or more of the following dose reduction techniques were used: Automated exposure control, adjustment of the mA and/or kV according to patient size, and/or utilization of iterative reconstruction technique. DISCUSSION: Scalp/Skull: Unremarkable. Brain sulci: Mildly prominent. Ventricles: Compensatory dilatation. Extra-axial spaces: No masses or fluid collections. Carotid siphon calcifications are present. Parenchyma: No abnormal densities. Otherwise, no masses, hemorrhage, or large vascular territory acute infarct. Dural sinuses: No abnormal densities. Sellar/Suprasellar region: Intact. Skull base: Intact. Incidental findings: None. IMPRESSION: 1. No acute intracranial abnormalities. 2. Mild generalized cerebral volume loss. Signed by: Dr. Kenrick Briseno M.D. on 07/16/2019 11:58 AM
[2019-07-16 12:03] LABS: BACTERIA,URINE FEW /HPF; EPITHELIAL CELLS,URINE FEW /LPF; RBC,URINE 0-5 /HPF (0-5)
[2019-07-16 12:07] LABS: INR 0.89; PROTHROMBIN TIME 12.5 seconds (11.9-14.5)
[2019-07-16 12:08] LABS: PARTIAL THROMBOPLASTIN TIME 28.1 seconds (23.8-35.5)
[2019-07-16 12:19] LABS: ALANINE AMINOTRANSFERASE 15 IU/L (0-55); ALBUMIN 3.6 g/dL (3.5-5.0); ALBUMIN/GLOBULIN RATIO 1.5 (0.8-2.0); ALKALINE PHOSPHATASE 75 IU/L (40-150); ANION GAP 12.8 mmol/L (8-16); BLOOD UREA NITROGEN 15 mg/dL (7-26); BUN/CREATININE RATIO 14 (6-25); CARBON DIOXIDE 25 mmol/L (22-29); CHLORIDE 101 mmol/L (98-107); CREATINE KINASE 39 IU/L (30-200); CREATININE, SERUM 1.08 mg/dL (0.72-1.25); EST GLOMERULAR FILTRATION RATE > 60 ML/MIN (60-); GLUCOSE 142 mg/dL (74-118); POTASSIUM 3.8 mmol/L (3.5-5.1); SODIUM 135 mmol/L (136-145)
== END 2019-07-16 13:28 | disposition home or self-care (01) ==
LOC: ER 11:09
DX: R51 Headache (principal); I10 Essential (primary) hypertension
CPT/HCPCS: 36415; 70450; 71045; 80053; 81001; 82550; 82553; 84484; 85025; 85610; 85730; 93005; 99284; J0360